=== PATIENT | female | born 1930 | race Two or more races ===

== ENCOUNTER 2017-05-30 11:40 | Outpatient (CLI) | payer MEDICARE, OTHER ==
[~2017-05-30 11:40] MED LIST: ACET-2605 PO; AMLO5TAB2 PO; ASCO10007 PO; CALC-903 PO; HYDR-552 PO; LACT1CAP73 PO; LEVO88TA5 PO; MECL-118 PO; OMEP20CA10 PO; PREG100C PO; VALS80TA30 PO
== END 2017-05-30 23:59 | disposition home health service (06) ==
LOC: WOU 11:40
PROVIDERS: ATTEND Podiatrist Foot & Ankle Surgery
DX: I70.235 Atherosclerosis of native arteries of right leg with ulceration of other part of foot (principal); L97.512 Non-pressure chronic ulcer of other part of right foot with fat layer exposed; I48.91 Unspecified atrial fibrillation; Z86.73 Personal history of transient ischemic attack (TIA), and cerebral infarction without residual deficits; Z96.611 Presence of right artificial shoulder joint; G90.09 Other idiopathic peripheral autonomic neuropathy; M79.671 Pain in right foot
CPT/HCPCS: 11042; A6253; A6402

== ENCOUNTER 2017-06-06 13:20 | Outpatient (CLI) | payer MEDICARE, OTHER | END 2017-06-06 23:59 | disposition home health service (06) | LOC: WOU 13:20 | PROVIDERS: ATTEND Podiatrist Foot & Ankle Surgery | DX: I70.235 Atherosclerosis of native arteries of right leg with ulceration of other part of foot (principal); L97.512 Non-pressure chronic ulcer of other part of right foot with fat layer exposed; M79.671 Pain in right foot; G90.09 Other idiopathic peripheral autonomic neuropathy; Z87.891 Personal history of nicotine dependence; Z79.01 Long term (current) use of anticoagulants; Z79.52 Long term (current) use of systemic steroids; Z79.899 Other long term (current) drug therapy; Z96.611 Presence of right artificial shoulder joint | CPT/HCPCS: 11042; A6402; J3490 ==

== ENCOUNTER 2017-06-13 13:22 | Outpatient (CLI) | payer MEDICARE, OTHER ==
[~2017-06-13 13:22] MED LIST changes: -AMLO5TAB2 PO; +AMLO5TAB7 PO; -VALS80TA30 PO; +VALS80TA31 PO
== END 2017-06-13 23:59 | disposition home health service (06) ==
LOC: WOU 13:22
PROVIDERS: ATTEND Podiatrist Foot & Ankle Surgery
DX: I70.235 Atherosclerosis of native arteries of right leg with ulceration of other part of foot (principal); L97.512 Non-pressure chronic ulcer of other part of right foot with fat layer exposed; Z87.891 Personal history of nicotine dependence; I69.398 Other sequelae of cerebral infarction; G62.9 Polyneuropathy, unspecified; I10 Essential (primary) hypertension; Z96.611 Presence of right artificial shoulder joint; Z79.899 Other long term (current) drug therapy; Z79.01 Long term (current) use of anticoagulants
CPT/HCPCS: 11042; A6402

== ENCOUNTER 2017-06-20 11:31 | Outpatient (CLI) | payer MEDICARE, OTHER | END 2017-06-20 23:59 | disposition home health service (06) | LOC: WOU 11:31 | PROVIDERS: ATTEND Podiatrist Foot & Ankle Surgery | PROC: 0JBQ0ZZ Excision of Right Foot Subcutaneous Tissue and Fascia, Open Approach (ICD-10-PCS; principal; 2017-06-20) | PROC: 0JB70ZZ Excision of Back Subcutaneous Tissue and Fascia, Open Approach (ICD-10-PCS; principal; 2017-06-20) | DX: L89.153 Pressure ulcer of sacral region, stage 3 (principal); I70.235 Atherosclerosis of native arteries of right leg with ulceration of other part of foot; L97.512 Non-pressure chronic ulcer of other part of right foot with fat layer exposed; G90.09 Other idiopathic peripheral autonomic neuropathy; I48.91 Unspecified atrial fibrillation; Z79.01 Long term (current) use of anticoagulants; Z86.73 Personal history of transient ischemic attack (TIA), and cerebral infarction without residual deficits; Z74.01 Bed confinement status; I10 Essential (primary) hypertension; E46 Unspecified protein-calorie malnutrition; Z68.23 Body mass index [BMI] 23.0-23.9, adult; Z87.891 Personal history of nicotine dependence | CPT/HCPCS: 11042; A6253; A6402 ==

== ENCOUNTER 2017-06-26 10:40 | Outpatient (CLI) | payer MEDICARE, OTHER | END 2017-06-26 23:59 | disposition home health service (06) | LOC: WOU 10:40 | PROVIDERS: ATTEND Podiatrist Foot & Ankle Surgery | DX: I70.235 Atherosclerosis of native arteries of right leg with ulceration of other part of foot (principal); L97.518 Non-pressure chronic ulcer of other part of right foot with other specified severity; M79.671 Pain in right foot; M62.50 Muscle wasting and atrophy, not elsewhere classified, unspecified site; N39.0 Urinary tract infection, site not specified; Z87.891 Personal history of nicotine dependence; I48.91 Unspecified atrial fibrillation; Z79.01 Long term (current) use of anticoagulants; G62.9 Polyneuropathy, unspecified; Z86.73 Personal history of transient ischemic attack (TIA), and cerebral infarction without residual deficits | CPT/HCPCS: 11042; A6253; A6402 ==

== ENCOUNTER 2017-06-27 12:40 | Outpatient (CLI) | payer MEDICARE, OTHER | END 2017-06-27 23:59 | disposition home health service (06) | LOC: WOU 12:40 | PROVIDERS: ATTEND Surgery | DX: L89.153 Pressure ulcer of sacral region, stage 3 (principal); E43 Unspecified severe protein-calorie malnutrition; I10 Essential (primary) hypertension; M62.50 Muscle wasting and atrophy, not elsewhere classified, unspecified site; G90.09 Other idiopathic peripheral autonomic neuropathy; I73.9 Peripheral vascular disease, unspecified; Z74.01 Bed confinement status; Z68.23 Body mass index [BMI] 23.0-23.9, adult; Z87.891 Personal history of nicotine dependence; Z86.73 Personal history of transient ischemic attack (TIA), and cerebral infarction without residual deficits | CPT/HCPCS: 11042; A6253; A6402 ==

== ENCOUNTER 2017-07-04 10:34 | Outpatient (CLI) | payer MEDICARE, OTHER | END 2017-07-04 23:59 | disposition home health service (06) | LOC: WOU 10:34 | PROVIDERS: ATTEND Surgery | DX: L89.153 Pressure ulcer of sacral region, stage 3 (principal); M79.671 Pain in right foot; G90.09 Other idiopathic peripheral autonomic neuropathy; M62.50 Muscle wasting and atrophy, not elsewhere classified, unspecified site; I70.209 Unspecified atherosclerosis of native arteries of extremities, unspecified extremity; I48.91 Unspecified atrial fibrillation; Z86.73 Personal history of transient ischemic attack (TIA), and cerebral infarction without residual deficits; Z74.01 Bed confinement status; I10 Essential (primary) hypertension; E46 Unspecified protein-calorie malnutrition; Z68.23 Body mass index [BMI] 23.0-23.9, adult | CPT/HCPCS: A6402; G0463 ==

== ENCOUNTER 2017-07-08 11:00 | Outpatient (CLI) | payer MEDICARE, OTHER ==
[~2017-07-08 11:00] MED LIST changes: +AMLO5TAB2 PO; -AMLO5TAB7 PO; +VALS80TA30 PO; -VALS80TA31 PO
== END 2017-07-08 23:59 | disposition home health service (06) ==
LOC: WOU 11:00
PROVIDERS: ATTEND Podiatrist Foot & Ankle Surgery
DX: I73.9 Peripheral vascular disease, unspecified (principal); G90.09 Other idiopathic peripheral autonomic neuropathy; L84 Corns and callosities; M19.90 Unspecified osteoarthritis, unspecified site; I10 Essential (primary) hypertension; I48.91 Unspecified atrial fibrillation; Z86.73 Personal history of transient ischemic attack (TIA), and cerebral infarction without residual deficits; Z87.891 Personal history of nicotine dependence; Z79.01 Long term (current) use of anticoagulants
CPT/HCPCS: G0463

== ENCOUNTER 2017-07-18 13:00 | Outpatient (CLI) | payer MEDICARE, OTHER ==
[~2017-07-18 13:00] MED LIST changes: -AMLO5TAB2 PO; +AMLO5TAB7 PO; -VALS80TA30 PO; +VALS80TA31 PO
== END 2017-07-18 23:59 | disposition home health service (06) ==
LOC: WOU 13:00
PROVIDERS: ATTEND Surgery
DX: L89.153 Pressure ulcer of sacral region, stage 3 (principal); G90.09 Other idiopathic peripheral autonomic neuropathy; I73.9 Peripheral vascular disease, unspecified; M26.50 Dentofacial functional abnormalities, unspecified; Z74.01 Bed confinement status; E46 Unspecified protein-calorie malnutrition; Z68.23 Body mass index [BMI] 23.0-23.9, adult; I10 Essential (primary) hypertension; I48.91 Unspecified atrial fibrillation; Z79.01 Long term (current) use of anticoagulants; Z86.73 Personal history of transient ischemic attack (TIA), and cerebral infarction without residual deficits; G62.9 Polyneuropathy, unspecified
CPT/HCPCS: A6402; G0463

== ENCOUNTER 2017-08-15 13:15 | Outpatient (CLI) | payer MEDICARE, OTHER | END 2017-08-15 23:59 | disposition home or self-care (01) | LOC: WOU 13:15 | PROVIDERS: ATTEND Surgery | DX: L84 Corns and callosities (principal); G90.09 Other idiopathic peripheral autonomic neuropathy; I73.9 Peripheral vascular disease, unspecified; I10 Essential (primary) hypertension; M62.50 Muscle wasting and atrophy, not elsewhere classified, unspecified site; Z86.73 Personal history of transient ischemic attack (TIA), and cerebral infarction without residual deficits | CPT/HCPCS: A6402; G0463 ==

== ENCOUNTER 2017-09-09 12:55 | Outpatient (CLI) | payer MEDICARE, OTHER | END 2017-09-09 23:59 | disposition home health service (06) | LOC: WOU 12:55 | PROVIDERS: ATTEND Podiatrist Foot & Ankle Surgery | DX: L84 Corns and callosities (principal); I73.9 Peripheral vascular disease, unspecified; G90.09 Other idiopathic peripheral autonomic neuropathy; M62.50 Muscle wasting and atrophy, not elsewhere classified, unspecified site; Z96.611 Presence of right artificial shoulder joint; Z86.73 Personal history of transient ischemic attack (TIA), and cerebral infarction without residual deficits | CPT/HCPCS: G0463; Z7610 ==

== ENCOUNTER 2017-10-14 13:04 | Outpatient (CLI) | payer MEDICARE, OTHER ==
[~2017-10-14 13:04] MED LIST changes: +AMLO5TAB2 PO; -AMLO5TAB7 PO
== END 2017-10-14 23:59 | disposition home or self-care (01) ==
LOC: WOU 13:04
PROVIDERS: ATTEND Podiatrist Foot & Ankle Surgery
DX: L84 Corns and callosities (principal); I73.9 Peripheral vascular disease, unspecified; G90.09 Other idiopathic peripheral autonomic neuropathy; M62.50 Muscle wasting and atrophy, not elsewhere classified, unspecified site
CPT/HCPCS: G0463; Z7610

== ENCOUNTER 2018-03-13 12:49 | Outpatient (CLI) | END 2018-03-13 23:59 | disposition home or self-care (01) | DX: S90.111A Contusion of right great toe without damage to nail, initial encounter (principal); W22.8XXA Striking against or struck by other objects, initial encounter; Y92.89 Other specified places as the place of occurrence of the external cause; G90.09 Other idiopathic peripheral autonomic neuropathy; M62.50 Muscle wasting and atrophy, not elsewhere classified, unspecified site; L84 Corns and callosities; I73.9 Peripheral vascular disease, unspecified; Z86.73 Personal history of transient ischemic attack (TIA), and cerebral infarction without residual deficits; I10 Essential (primary) hypertension; I48.91 Unspecified atrial fibrillation; Z79.01 Long term (current) use of anticoagulants; Z79.899 Other long term (current) drug therapy ==

== ENCOUNTER 2018-03-27 12:09 | Outpatient (CLI) | payer MEDICARE, OTHER ==
[~2018-03-27 12:09] MED LIST changes: -AMLO5TAB2 PO; +AMLO5TAB9 PO; +HYDR-4384 PO; -HYDR-552 PO
== END 2018-03-27 23:59 | disposition home or self-care (01) ==
LOC: WOU 12:09
PROVIDERS: ATTEND Podiatrist Foot & Ankle Surgery
DX: S90.111D Contusion of right great toe without damage to nail, subsequent encounter (principal); W22.8XXD Striking against or struck by other objects, subsequent encounter; G90.09 Other idiopathic peripheral autonomic neuropathy; I73.9 Peripheral vascular disease, unspecified; M62.50 Muscle wasting and atrophy, not elsewhere classified, unspecified site; L84 Corns and callosities; Z86.73 Personal history of transient ischemic attack (TIA), and cerebral infarction without residual deficits; Z87.891 Personal history of nicotine dependence; Z96.611 Presence of right artificial shoulder joint; I10 Essential (primary) hypertension; I48.91 Unspecified atrial fibrillation; Z79.01 Long term (current) use of anticoagulants; Z79.899 Other long term (current) drug therapy
CPT/HCPCS: G0463; Z7610 ×2

== ENCOUNTER 2018-07-15 13:35 | Inpatient (IN) | payer MEDICARE, OTHER ==
[~2018-07-15] VITALS: Ht 172.7 cm; Wt 71.2 kg
--- NOTE | 2018-07-15 13:42 | NUR ---
BIB [facility], WEAKNESS AND DIARRHEA X 5 DAYS. PT IS AOX3, VSS, RR EVEN AND UNLABORED ON RA. SKIN WARM TO TOUCH, DRY, INTACT. NO ACUTE DISTRESS NOTED. DAUGHTER AT BEDSIDE. READY FOR EVAL.
[2018-07-15] MEDS ORDERED: IV NS 0.9% 1,000 ML BAG IV ONE (14:00)
[2018-07-15 14:15] LABS: BASOPHILS % (AUTO) 0.4 % (0.0-2.0); EOSINOPHILS % (AUTO) 0.3 % (0.0-6.0); HEMATOCRIT 33 % (33-45); HEMOGLOBIN 10.9 g/dL (11.5-14.8); LYMPHOCYTES # (AUTO) 0.5 /CMM (0.8-4.8); LYMPHOCYTES % (AUTO) 4.4 % (20.0-44.0); MEAN CORPUSCULAR HGB CONC 33 g/dl (31.0-36.0); MEAN CORPUSCULAR VOLUME 98 fL (82-100); MONOCYTES # (AUTO) 0.8 /CMM (0.1-1.30); MONOCYTES % (AUTO) 7.5 % (2.0-12.0); NEUTROPHILS # (AUTO) 9.5 /CMM (1.8-8.9); NEUTROPHILS % (AUTO) 87.4 % (43.0-81.0); PLATELET COUNT (AUTO) 184 /CMM (150-450); RED BLOOD CELL COUNT(AUTO) 3.35 MIL/uL (4.0-5.2); WHITE BLOOD COUNT (AUTO) 10.9 K/uL (4.3-11.0)
[2018-07-15 14:23] LABS: CALCIUM, SERUM 9.6 mg/dL (8.5-10.1); CARBON DIOXIDE 26 mmol/L (21-32); CHLORIDE 106 mmol/L (98-107); CREATININE 0.9 mg/dL (0.6-1.3); GLUCOSE 155 mg/dL (74-106); POTASSIUM 4.3 mmol/L (3.5-5.1); SODIUM SERUM 141 mmol/L (136-145); UREA NITROGEN, BLOOD 22 mg/dL (7-18)
[2018-07-15 14:35] LABS: ALANINE AMINOTRANSFERASE 26 U/L (12-78); ALBUMIN 3.1 g/dL (3.4-5.0); ALKALINE PHOSPHATASE 112 U/L (46-116); ASPARTATE AMINOTRANSFERASE 18 U/L (15-37); BILIRUBIN,DIRECT 0.2 mg/dL (0.0-0.2); BILIRUBIN,TOTAL 0.6 mg/dL (0.2-1.0); LIPASE 121 U/L (73-393); TOTAL PROTEIN, SERUM 6.8 g/dL (6.4-8.2)
--- NOTE | 2018-07-15 15:05 | NUR ---
STOOL SAMPLE SENT TO STAT LAB
--- NOTE | 2018-07-15 16:14 | NUR ---
PT ASLEEP IN BED. NO COMPLAINTS AT THIS TIME. VSS. WILL CONT TO MONITOR.
[2018-07-15 16:48] LABS: OCCULT BLOOD STOOL NEGATIVE (NEGATIVE)
--- NOTE | 2018-07-15 17:27 | NUR ---
Santana valencia in [facility] - 07/15/18 at 2158 by [facility] ICU 205
--- NOTE | 2018-07-15 17:55 | NUR ---
MS 205
--- NOTE | 2018-07-15 17:56 | NUR ---
REPORT GIVEN TO DANE MICHELLE FOR 205 MS
--- NOTE | 2018-07-15 18:25 | NUR ---
[facility]
--- NOTE | 2018-07-15 18:30 | NUR ---
ADMISSION/CLOSING NOTE PT WAS BROUGHT UP VIA GURNEY AT THIS TIME, AWAKE AND ALERT X3, BREATHING EVEN AND UNLABORED ON RA, NO S/S OF ANY DISTRESS OR PAIN AT THIS TIME, NOTED TO HAVE RIGHT WRIST GAUGE 20, SAFETY PRECAUTIONS IN PLACE, CALL LIGHT WITHIN REACH, WILL MONITOR PT ACCORDINGLY AND ENDORSE TO RELOCATION COMMISSIONER RN FOR CROW.
[2018-07-15] MEDS ORDERED: MAGNESIUM HYDROXIDE 30 ML UDC PO PRN (19:00)
[2018-07-15] MEDS ORDERED: Z GUARD REMEDY 2 OZ OINT TP PRN (19:00)
[2018-07-15] MEDS ORDERED: ONDANSETRON HCL/PF 4 MG/2 ML VIAL IVP PRN (19:00)
[2018-07-15] MEDS ORDERED: ACETAMINOPHEN 325 MG TABLET PO PRN (19:00)
--- NOTE | 2018-07-15 19:20 | NUR ---
CHANGE OF SHIFT REPORT Patient in bed, awake. A/O x 4 stable oxygen saturation on RA, denies pain. New admit arrived previous shift. Orientation to room, unit, staff. Call light within reach, safety measure explained, verbalized understanding.
--- NOTE | 2018-07-15 20:00 | NUR ---
SKIN CHECK Provided privacy, skin check done with DANEIL Comer. Skin intact. Coccyx blanchable redness, right foot first toe skin redness with streak of blood purplish color. Wound consult ordered.
[2018-07-15] MEDS ORDERED: ENOXAPARIN SODIUM 40 MG/0.4 ML DISP.SYRIN SQ SCH (21:00)
--- NOTE | 2018-07-15 21:36 | NUR ---
DIET Notified concrete stone fabricating supervisor, order place-Diet Clear liquids advance as tolerated.
[2018-07-15 22:00] VITALS: BP 123/67
[2018-07-15] MEDS: ATORVASTATIN 10 MG TABLET PO SCH (22:19)
[2018-07-15] MEDS ORDERED: DIPH25TA25 PO (22:45)
[2018-07-15] MEDS ORDERED: METH1TAB30 PO (22:45)
[2018-07-15] MEDS ORDERED: TRAZ-182 PO (22:45)
[2018-07-15] MEDS ORDERED: DOCU100C36 PO (22:45)
[2018-07-15] MEDS ORDERED: ESZO3TAB27 PO (22:45)
[2018-07-15] MEDS ORDERED: NITR100C11 PO (22:45)
[2018-07-15] MEDS ORDERED: PRED20TA PO (22:45)
[2018-07-15] MEDS ORDERED: DOXA2TAB2 PO (22:45)
[2018-07-15] MEDS ORDERED: HYDR-4076 PO (22:45)
[2018-07-15] MEDS ORDERED: PREG100C PO (22:45)
[2018-07-15] MEDS ORDERED: CRAN400T3 PO (22:45)
[2018-07-15] MEDS ORDERED: POLY17PO29 PO (22:45)
[2018-07-15] MEDS ORDERED: DILT240C88 PO (22:45)
[2018-07-15] MEDS ORDERED: APIX2.5T PO (22:45)
[2018-07-15] MEDS ORDERED: IPRA3AMP22 IH (22:45)
[2018-07-15] MEDS ORDERED: LANS30CA56 PO (22:45)
[2018-07-15] MEDS ORDERED: TRAM50TA2 PO (22:45)
[2018-07-15] MEDS ORDERED: PRED5TAB48 PO (22:45)
--- NOTE | 2018-07-15 22:45 | NUR ---
MED RECON. Patient seen by Ashely Banks NP. Med recon for review.
--- NOTE | 2018-07-15 22:52 | NUR ---
CHINO CATHETER Per patient she does self catheterization at home every 6 hours due to unable to void. Bladder scan showed 390 vol urine. Informed Ashely Banks NP. Order placed, Insert [facility] Inpatient.
[2018-07-15] MEDS: ZOLPIDEM TARTRATE 5 MG TABLET PO PRN (23:42)
[2018-07-16] MEDS ORDERED: TRAMADOL HCL 50 MG TABLET PO PRN (01:30)
[2018-07-16] MEDS: IV NS 0.9% 1,000 ML IV PRN ×2 (01:57→16:13)
[2018-07-16] MEDS ORDERED: AZITHROMYCIN 500 MG VIAL ONE (02:17)
[2018-07-16] MEDS: AZITHROMYCIN 500 MG in IV D5W 250 ML IV SCH (02:29)
--- NOTE | 2018-07-16 06:27 | NUR ---
END OF SHIFT REPORT Patient in bed, stable oxygen saturation on RA. No BM this shift, no diarrhea. Stool cdiff pending result. IVF infusing, maintained at 75 ml/hr. On IV antibiotic as scheduled, VSS. Slept well with PRN Ambien. For wound consult, PT/OT. Chino cath in place, bag off the floor. Maintained safety.
[2018-07-16] MEDS: LEVOTHYROXINE SODIUM 88 MCG TABLET PO SCH (06:37)
[2018-07-16 07:04] LABS: APPEARANCE,URINE SL CLOUDY (CLEAR); BILIRUBIN,URINE NEGATIVE (NEGATIVE); BLOOD, URINE NEGATIVE Ery/uL (NEGATIVE); COLOR,URINE YELLOW (YELLOW); KETONES,URINE NEGATIVE (NEGATIVE); LEUKOCYTE ESTERASE ,URINE TRACE (NEGATIVE); NITRITE, URINE NEGATIVE (NEGATIVE); PROTEIN,URINE TRACE mg/dl (NEGATIVE); UGLUCOSE NEGATIVE (NEGATIVE); UROBILINOGEN,URINE 0.2 EU/dL (0.2)
[2018-07-16 07:26] LABS: BASOPHILS % (AUTO) 0.3 % (0.0-2.0); EOSINOPHILS % (AUTO) 1.8 % (0.0-6.0); HEMATOCRIT 29 % (33-45); HEMOGLOBIN 9.8 g/dL (11.5-14.8); LYMPHOCYTES # (AUTO) 1.2 /CMM (0.8-4.8); LYMPHOCYTES % (AUTO) 15.1 % (20.0-44.0); MEAN CORPUSCULAR HGB CONC 34 g/dl (31.0-36.0); MEAN CORPUSCULAR VOLUME 97 fL (82-100); MONOCYTES # (AUTO) 0.7 /CMM (0.1-1.30); MONOCYTES % (AUTO) 8.8 % (2.0-12.0); NEUTROPHILS # (AUTO) 5.6 /CMM (1.8-8.9); PLATELET COUNT (AUTO) 185 /CMM (150-450); RED BLOOD CELL COUNT(AUTO) 2.99 MIL/uL (4.0-5.2); WHITE BLOOD COUNT (AUTO) 7.6 K/uL (4.3-11.0)
[2018-07-16] MEDS ORDERED: OMEPRAZOLE 20 MG CAPSULE.DR PO SCH (07:30)
[2018-07-16 07:43] LABS: BACTERIA,URINE 4+ /HPF (None Seen)
[2018-07-16 07:51] LABS: CALCIUM, SERUM 9.1 mg/dL (8.5-10.1); CARBON DIOXIDE 24 mmol/L (21-32); CHLORIDE 106 mmol/L (98-107); CREATININE 0.8 mg/dL (0.6-1.3); GLUCOSE 77 mg/dL (74-106); MAGNESIUM 1.6 mg/dL (1.8-2.4); PHOSPHORUS 2.8 mg/dL (2.5-4.9); POTASSIUM 3.7 mmol/L (3.5-5.1); SODIUM SERUM 140 mmol/L (136-145); UREA NITROGEN, BLOOD 22 mg/dL (7-18)
[2018-07-16 08:00] VITALS: BP 126/58
[2018-07-16 08:08] LABS: CHOLESTEROL 83 mg/dL (<200); HDL CHOLESTEROL 18 mg/dL (40-60); LDL 60 mg/dL (0-99); TRIGLYCERIDES 77 mg/dL (30-150)
[2018-07-16] MEDS: POLYETHYLENE GLYCOL 3350 17 GM POWD.PACK PO SCH (09:00)
[2018-07-16] MEDS ORDERED: MAGNESIUM OXIDE 400 MG TABLET PO ONE (09:00)
[2018-07-16] MEDS: DOCUSATE SODIUM 100 MG CAPSULE PO SCH (09:00)
--- NOTE | 2018-07-16 09:00 | NUR ---
MS/RN Diarrhea One episode of diarrhea, stool already collected and sent to lab.
[2018-07-16] MEDS: DILTIAZEM HCL CD 240 MG PO SCH (09:26)
[2018-07-16] MEDS: CALCIUM CARBONATE 500 MG TAB.CHEW PO SCH (09:26)
[2018-07-16] MEDS: LACTOBACILLUS RHAMNOSUS GG 1 EACH CAP.SPRINK PO SCH ×2 (09:26→17:25)
[2018-07-16] MEDS: NITROFURANTOIN/NITROFURAN MAC 100 MG CAPSULE PO SCH (09:26)
[2018-07-16] MEDS: predniSONE 20 MG TABLET PO SCH (09:26)
[2018-07-16] MEDS: ASCORBIC ACID 500 MG TABLET PO SCH (09:26)
[2018-07-16] MEDS: VALSARTAN 80 MG TABLET PO SCH (09:27)
[2018-07-16] MEDS: ASPIRIN 81 MG TAB.CHEW PO SCH (09:27)
[2018-07-16] MEDS: hydrALAZINE HCL 25 MG TABLET PO SCH ×2 (09:27→17:26)
[2018-07-16] MEDS: PREGABALIN 100 MG CAPSULE PO SCH ×2 (09:27→17:26)
[2018-07-16] MEDS: HYDROCODONE/APAP 5/325MG 1 EACH TABLET PO PRN (09:31)
--- NOTE | 2018-07-16 09:55 | NUR ---
MS/RN Medications Morning medications administered as ordered.
--- NOTE | 2018-07-16 10:30 | NUR ---
MS/RN S/B Ashely Banks FAMILY AND CONSUMER SCIENCES TEACHER Seen by FAMILY AND CONSUMER SCIENCES TEACHER - order wrote to start oral vancomycin every 6 hours.
[2018-07-16] MEDS: VANCOMYCIN HCL 125 MG/2.5 ML ORAL.SUSP PO SCH ×2 (12:11→17:31)
--- NOTE | 2018-07-16 15:00 | NUR ---
MS/RN S/B Dr Myles Seen by Dr Myles - 2D echo ordered, ejection fracture 55%
[2018-07-16 16:00] VITALS: BP 116/68
[2018-07-16] MEDS: APIXABAN 2.5 MG TABLET PO SCH (17:26)
[2018-07-16] MEDS: TRAZODONE 50 MG TABLET PO SCH (17:27)
--- NOTE | 2018-07-16 18:34 | NUR ---
MS/RN End note Patient has had a total of 3 episodes of diarrhea today, sample sent to lab for c-diff. Skin kept clean and dry at all times, heels off loaded. Will endorse to night warehouse selector.
--- NOTE | 2018-07-16 19:54 | NUR ---
RECEIVED PT IN BED AWAKE AND RESPONSIVE. BREATHING EVENLY. NO SOB. NAD . NO C/O PAIN OR DISCOMFORT AT THIS TIME. ON ISOLATION PRECAUTION FOR POSSIBLE C.DIFF. WITH PENDING RESULTS. NEEDS ATTENDED. BED LOW LOCKED. SRX2. CALL LIGHT WITHIN REACH, WILL CONT TO MONITOR
[2018-07-16 20:00] VITALS: BP 122/65
[2018-07-16] MEDS: DOXAZOSIN MESYLATE (1 MG) 1 MG TABLET PO SCH (21:34)
[2018-07-16] MEDS: ZOLPIDEM TARTRATE 5 MG TABLET PO PRN (21:34)
[2018-07-16] MEDS: ATORVASTATIN 10 MG TABLET PO SCH (21:34)
--- NOTE | 2018-07-16 21:35 | NUR ---
Khadijahien given as ordered per pt's request for insomnia. will cont to monitor,
[2018-07-17] MEDS: VANCOMYCIN HCL 125 MG/2.5 ML ORAL.SUSP PO SCH ×4 (00:01→17:00)
[2018-07-17] MEDS: AZITHROMYCIN 500 MG in IV D5W 250 ML IV SCH (02:25)
[2018-07-17] MEDS: IV NS 0.9% 1,000 ML IV PRN ×2 (06:25→21:45)
[2018-07-17 06:26] LABS: BASOPHILS % (AUTO) 0.3 % (0.0-2.0); EOSINOPHILS % (AUTO) 0.3 % (0.0-6.0); HEMATOCRIT 30 % (33-45); HEMOGLOBIN 10.5 g/dL (11.5-14.8); LYMPHOCYTES # (AUTO) 0.7 /CMM (0.8-4.8); LYMPHOCYTES % (AUTO) 7.8 % (20.0-44.0); MEAN CORPUSCULAR HGB CONC 34 g/dl (31.0-36.0); MEAN CORPUSCULAR VOLUME 97 fL (82-100); MONOCYTES # (AUTO) 0.7 /CMM (0.1-1.30); NEUTROPHILS # (AUTO) 7.6 /CMM (1.8-8.9); NEUTROPHILS % (AUTO) 83.6 % (43.0-81.0); PLATELET COUNT (AUTO) 224 /CMM (150-450); RED BLOOD CELL COUNT(AUTO) 3.15 MIL/uL (4.0-5.2)
--- NOTE | 2018-07-17 06:27 | NUR ---
WOUND CARE CONSULT WOUND CARE RECEIVED CONSULT FOR RIGHT FIRST TOE NON BLANCHABLE REDNESS AND COCCYX BLANCHABLE REDNESS. WOUND CARE WILL DEFER CONSULT AND ALL TREATMENT PLANS TO PLASTIC SURGICAL TEAM WHO ARE CURRENTLY FOLLOWING THIS PATIENT. DPM DR NEVAREZ IS ALSO FOLLOWING THIS PATIENT. PATIENT WITH NELL AT 17, ALL PRESSURE ULCER PREVENTION MEASURES ARE NOTED TO BE IN PLACE. WILL SEE PRN.
[2018-07-17 06:31] LABS: CALCIUM, SERUM 9.2 mg/dL (8.5-10.1); CARBON DIOXIDE 23 mmol/L (21-32); CHLORIDE 108 mmol/L (98-107); CREATININE 0.9 mg/dL (0.6-1.3); GLUCOSE 141 mg/dL (74-106); MAGNESIUM 1.5 mg/dL (1.8-2.4); PHOSPHORUS 2.4 mg/dL (2.5-4.9); POTASSIUM 3.8 mmol/L (3.5-5.1); SODIUM SERUM 142 mmol/L (136-145); UREA NITROGEN, BLOOD 21 mg/dL (7-18)
--- NOTE | 2018-07-17 07:05 | NUR ---
PT IN BED AWAKE AND ALERT. BREATHING EVENLY. WITH FREQUENT WATERY DIARRHEA. CLEANED AND DRIED. ON ONGOING IVF HYDRATION MISHA WELL. NEEDS ATTENDED . BED LOW LOCKED. SRX2. CALL LIGHT WITHIN REACH, WILL CONT TO MONITOR AND WILL ENDORSE TO AM SHIFT FOR CROW.
[2018-07-17 08:00] VITALS: BP 129/66
--- NOTE | 2018-07-17 08:00 | NUR ---
MS 2 RN AM NOTES PT IN BED AWAKE AND ALERT. BREATHING EVENLY. WITH FREQUENT WATERY DIARRHEA. GOOD PERICARE RENDERED.CLEANED AND DRIED. ON ONGOING IVF HYDRATION INFUSING WELL. BED LOW LOCKED. SRX2. CALL LIGHT WITHIN REACH, WILL CONT TO MONITOR
[2018-07-17] MEDS: DOCUSATE SODIUM 100 MG CAPSULE PO SCH ×2 (09:00→09:17)
[2018-07-17] MEDS: POLYETHYLENE GLYCOL 3350 17 GM POWD.PACK PO SCH (09:00)
[2018-07-17] MEDS: VALSARTAN 80 MG TABLET PO SCH (09:15)
[2018-07-17] MEDS: LEVOTHYROXINE SODIUM 88 MCG TABLET PO SCH (09:16)
[2018-07-17] MEDS: ASPIRIN 81 MG TAB.CHEW PO SCH (09:16)
[2018-07-17] MEDS: CALCIUM CARBONATE 500 MG TAB.CHEW PO SCH (09:16)
[2018-07-17] MEDS: ASCORBIC ACID 500 MG TABLET PO SCH (09:17)
[2018-07-17] MEDS: hydrALAZINE HCL 25 MG TABLET PO SCH ×2 (09:17→16:56)
[2018-07-17] MEDS: DILTIAZEM HCL CD 240 MG PO SCH (09:17)
[2018-07-17] MEDS: PANTOPRAZOLE 40 MG TABLET.DR PO SCH (09:17)
[2018-07-17] MEDS: PREGABALIN 100 MG CAPSULE PO SCH ×2 (09:17→16:57)
[2018-07-17] MEDS: LACTOBACILLUS RHAMNOSUS GG 1 EACH CAP.SPRINK PO SCH ×2 (09:17→16:57)
[2018-07-17] MEDS: predniSONE 20 MG TABLET PO SCH (09:17)
[2018-07-17] MEDS: NITROFURANTOIN/NITROFURAN MAC 100 MG CAPSULE PO SCH (09:17)
[2018-07-17] MEDS: APIXABAN 2.5 MG TABLET PO SCH ×2 (09:21→16:57)
[2018-07-17] MEDS: Magnesium 1GM/D5W 100ML PREMIX 100 ML IV SCH ×2 (11:01→11:52)
[2018-07-17] MEDS ORDERED: K PHOS NEUTRAL 250 MG TABLET PO ONE (11:30)
[2018-07-17] MEDS: LEVOFLOXACIN 500 MG /D5W 100ML 500 MG in PREMIX 1 EA IV SCH (14:38)
[2018-07-17 16:00] VITALS: BP 104/50
--- NOTE | 2018-07-17 16:15 | NUR ---
INGRID OF MICROBIOLOGY REPORTED THAT SHAWANDA STATED THAT THE STOOL COLLECTED FOR C DIFF IS INVALID AFTER BEING RUNNED TWICE DUE TO THE MEDS PT IS TAKING,WITH NO RESULTS.SHAWANDA RECOMMENDED TO COLLECT STOOL FOR C.DIFF IN 2 DAYS.
[2018-07-17] MEDS: TRAZODONE 50 MG TABLET PO SCH (17:00)
--- NOTE | 2018-07-17 18:12 | NUR ---
PT RESTING IN BED AND ATE HER EGG SANDWICH.DENIES ANY PAIN OR DISTRESS.PT WATCHING TV AND HAD 3 EPISODES OF LOOSE BM DURING THE SHIFT.ENCOURAGED FLUIDS. CALL LIGHT PLACED WITHIN REACH.
[2018-07-17 20:00] VITALS: BP 132/59
--- NOTE | 2018-07-17 20:00 | NUR ---
RN NOTES RECEIVED PATIENT AWAKE AND ALERT. BREATHING EVEN AND UN LABORED. NOTED WITH LOOSE - SOFT STOOL. GOOD PERICARE RENDERED.CLEANED AND DRIED. WILL MONITOR FOR LOOSE WATERY STOOL, ON ONGOING IVF HYDRATION INFUSING WELL. SAFETY MEASURES IN PLACE,BED LOW LOCKED. BEDSIDE RAILS UP X2. CALL LIGHT WITHIN REACH, WILL MONITOR ACCORDINGLY.
[2018-07-17] MEDS: ATORVASTATIN 10 MG TABLET PO SCH (21:18)
[2018-07-17] MEDS: DOXAZOSIN MESYLATE (1 MG) 1 MG TABLET PO SCH (21:19)
[2018-07-18] MEDS: VANCOMYCIN HCL 125 MG/2.5 ML ORAL.SUSP PO SCH ×4 (00:05→17:24)
--- NOTE | 2018-07-18 03:05 | NUR ---
RN NOTES PATIENT C/O GENERALIZED PAIN, TYLENOL 650MG TABLET PO GIVEN ORDERED. WILL MONITOR.
[2018-07-18 06:30] LABS: BASOPHILS % (AUTO) 0.1 % (0.0-2.0); EOSINOPHILS % (AUTO) 0.2 % (0.0-6.0); HEMATOCRIT 29 % (33-45); HEMOGLOBIN 9.7 g/dL (11.5-14.8); LYMPHOCYTES # (AUTO) 0.7 /CMM (0.8-4.8); LYMPHOCYTES % (AUTO) 7.2 % (20.0-44.0); MEAN CORPUSCULAR HGB CONC 34 g/dl (31.0-36.0); MEAN CORPUSCULAR VOLUME 96 fL (82-100); MONOCYTES # (AUTO) 0.6 /CMM (0.1-1.30); MONOCYTES % (AUTO) 5.9 % (2.0-12.0); NEUTROPHILS # (AUTO) 8.5 /CMM (1.8-8.9); NEUTROPHILS % (AUTO) 86.6 % (43.0-81.0); PLATELET COUNT (AUTO) 224 /CMM (150-450); RED BLOOD CELL COUNT(AUTO) 2.97 MIL/uL (4.0-5.2); WHITE BLOOD COUNT (AUTO) 9.8 K/uL (4.3-11.0)
[2018-07-18 07:04] LABS: CARBON DIOXIDE 22 mmol/L (21-32); CHLORIDE 111 mmol/L (98-107); CREATININE 0.7 mg/dL (0.6-1.3); GLUCOSE 98 mg/dL (74-106); MAGNESIUM 1.7 mg/dL (1.8-2.4); PHOSPHORUS 2.7 mg/dL (2.5-4.9); POTASSIUM 3.5 mmol/L (3.5-5.1); SODIUM SERUM 143 mmol/L (136-145); UREA NITROGEN, BLOOD 17 mg/dL (7-18)
--- NOTE | 2018-07-18 07:26 | NUR ---
RN NOTES ALL NEEDS ATTENDED AND MET, KEPT CLEAN DRY AND COMFORTABLE, BM X 4, SOFT, AND PASTY, FOR THE ENTIRE SHIFT,SAFETY MEASURES MAINTAINED, ASPIRATION PRECAUTION OBSERVED AT ALL TIMES. ENDORSED TO AM NURSE FOR CONTINUITY OF CARE.
[2018-07-18 08:00] VITALS: BP 125/77
--- NOTE | 2018-07-18 08:00 | NUR ---
MS 2 RN AM NOTES PT IN BED AWAKE AND ALERT. BREATHING EVENLY.DENIES PAIN OR DISTRESS.GOOD PERICARE RENDERED.ON ONGOING IVF HYDRATION INFUSING WELL. BED LOW LOCKED. SRX2. CALL LIGHT WITHIN REACH, ON CONTACT ISOLATION PRECAUTIONS.WILL CONT TO MONITOR
[2018-07-18] MEDS: POLYETHYLENE GLYCOL 3350 17 GM POWD.PACK PO SCH (09:00)
[2018-07-18] MEDS: DOCUSATE SODIUM 100 MG CAPSULE PO SCH (09:00)
[2018-07-18] MEDS: LACTOBACILLUS RHAMNOSUS GG 1 EACH CAP.SPRINK PO SCH ×2 (09:19→17:24)
[2018-07-18] MEDS: ASPIRIN 81 MG TAB.CHEW PO SCH (09:19)
[2018-07-18] MEDS: DILTIAZEM HCL CD 240 MG PO SCH (09:19)
[2018-07-18] MEDS: hydrALAZINE HCL 25 MG TABLET PO SCH ×2 (09:19→17:00)
[2018-07-18] MEDS: ASCORBIC ACID 500 MG TABLET PO SCH (09:19)
[2018-07-18] MEDS: predniSONE 20 MG TABLET PO SCH (09:19)
[2018-07-18] MEDS: PREGABALIN 100 MG CAPSULE PO SCH ×2 (09:19→17:24)
[2018-07-18] MEDS: CALCIUM CARBONATE 500 MG TAB.CHEW PO SCH (09:19)
[2018-07-18] MEDS: VALSARTAN 80 MG TABLET PO SCH (09:19)
[2018-07-18] MEDS: NITROFURANTOIN/NITROFURAN MAC 100 MG CAPSULE PO SCH (09:20)
[2018-07-18] MEDS: APIXABAN 2.5 MG TABLET PO SCH ×2 (09:21→17:24)
[2018-07-18] MEDS: PANTOPRAZOLE 40 MG TABLET.DR PO SCH (09:26)
[2018-07-18] MEDS: LEVOTHYROXINE SODIUM 88 MCG TABLET PO SCH (09:26)
[2018-07-18] MEDS: Magnesium 1GM/D5W 100ML PREMIX 100 ML IV SCH ×2 (10:59→12:43)
[2018-07-18] MEDS: LEVOFLOXACIN 500 MG /D5W 100ML 500 MG in PREMIX 1 EA IV SCH (14:05)
[2018-07-18] MEDS: IV NS 0.9% 1,000 ML IV PRN (17:23)
[2018-07-18] MEDS: TRAZODONE 50 MG TABLET PO SCH (17:24)
--- NOTE | 2018-07-18 18:30 | NUR ---
PT RESTING IN BED WATCHING TV DENYING ANY PAIN OR DISTRESS.WITH IVF INFUSING WELL.CALL LIGHT PLACED WITHIN REACH.
--- NOTE | 2018-07-18 19:30 | NUR ---
RN OPENING NOTES: RECEIVED PATIENT RESTING COMFORTABLY IN BED, WATCHING TV, ALERT AND ORIENTED X4. NO COMPLAIN OF PAIN. ON ISOLATION PRECAUTION TO R/O C-DIFF. CALL LIGHT WITHIN REACH.
[2018-07-18 20:24] VITALS: BP 125/59
[2018-07-18] MEDS: ATORVASTATIN 10 MG TABLET PO SCH (21:37)
[2018-07-18] MEDS: DOXAZOSIN MESYLATE (1 MG) 1 MG TABLET PO SCH (21:38)
[2018-07-18] MEDS: ZOLPIDEM TARTRATE 5 MG TABLET PO PRN (21:53)
--- NOTE | 2018-07-19 00:01 | NUR ---
RN NOTES: PATIENT IS ASLEEP AT THIS TIME.
--- NOTE | 2018-07-19 01:28 | NUR ---
RN NOTES: PATIENT GIVEN AMBIEN 5MG PO @2153, AND PATIENT WANTS NOT TO BE BOTHERED TONIGHT FOR ANY MEDS. VANCO DUE AT 0000 WAS NOT GIVEN, PATIENT WAS ASLEEP. CHECKED THE PATIENT AT THIS TIME, STILL ASLEEP.
[2018-07-19] MEDS: HYDROCODONE/APAP 5/325MG 1 EACH TABLET PO PRN ×2 (03:33→08:15)
[2018-07-19] MEDS: VANCOMYCIN HCL 125 MG/2.5 ML ORAL.SUSP PO SCH ×4 (06:03→17:44)
[2018-07-19] MEDS: IV NS 0.9% 1,000 ML IV PRN (06:03)
--- NOTE | 2018-07-19 07:09 | NUR ---
MS RN CLOSING NOTES: PATIENT IS RESTING COMFORTABLY IN BED. AWAKE, ALERT AND ORIENTED X4. NO SOB. NO COMPLAIN OF PAIN. CALL LIGHT WITHIN REACH. HAD BM X1 ONLY, SOFT. NO ACUTE EVENTS OVERNIGHT. SLEPT GOOD LAST NIGHT.
[2018-07-19 07:55] LABS: CALCIUM, SERUM 8.8 mg/dL (8.5-10.1); CARBON DIOXIDE 21 mmol/L (21-32); CHLORIDE 115 mmol/L (98-107); CREATININE 0.7 mg/dL (0.6-1.3); GLUCOSE 102 mg/dL (74-106); MAGNESIUM 1.8 mg/dL (1.8-2.4); POTASSIUM 3.9 mmol/L (3.5-5.1); SODIUM SERUM 146 mmol/L (136-145); UREA NITROGEN, BLOOD 16 mg/dL (7-18)
[2018-07-19 08:00] VITALS: BP 132/70
--- NOTE | 2018-07-19 08:00 | NUR ---
MS 2 RN AM NOTES PT IN BED AWAKE AND ALERT. BREATHING EVENLY.DENIES PAIN OR DISTRESS.GOOD PERICARE RENDERED.ON ONGOING IVF HYDRATION INFUSING WELL. BED LOW LOCKED. SRX2. CALL LIGHT WITHIN REACH, ON CONTACT ISOLATION PRECAUTIONS TO R/O C DIFF.WILL CONT TO MONITOR
[2018-07-19] MEDS: ASCORBIC ACID 500 MG TABLET PO SCH (08:13)
[2018-07-19] MEDS: ASPIRIN 81 MG TAB.CHEW PO SCH (08:13)
[2018-07-19] MEDS: LACTOBACILLUS RHAMNOSUS GG 1 EACH CAP.SPRINK PO SCH ×2 (08:14→17:44)
[2018-07-19] MEDS: LEVOTHYROXINE SODIUM 88 MCG TABLET PO SCH (08:14)
[2018-07-19] MEDS: VALSARTAN 80 MG TABLET PO SCH (08:14)
[2018-07-19] MEDS: CALCIUM CARBONATE 500 MG TAB.CHEW PO SCH (08:14)
[2018-07-19] MEDS: NITROFURANTOIN/NITROFURAN MAC 100 MG CAPSULE PO SCH (08:14)
[2018-07-19] MEDS: hydrALAZINE HCL 25 MG TABLET PO SCH ×2 (08:14→17:44)
[2018-07-19] MEDS: predniSONE 20 MG TABLET PO SCH (08:14)
[2018-07-19] MEDS: DILTIAZEM HCL CD 240 MG PO SCH (08:15)
[2018-07-19] MEDS: PREGABALIN 100 MG CAPSULE PO SCH ×2 (08:15→17:44)
[2018-07-19] MEDS: PANTOPRAZOLE 40 MG TABLET.DR PO SCH (08:15)
[2018-07-19] MEDS: DOCUSATE SODIUM 100 MG CAPSULE PO SCH (08:16)
[2018-07-19] MEDS: POLYETHYLENE GLYCOL 3350 17 GM POWD.PACK PO SCH (08:16)
[2018-07-19] MEDS: APIXABAN 2.5 MG TABLET PO SCH ×2 (08:18→17:46)
[2018-07-19] MEDS ORDERED: VANC125C11 PO (09:23)
[2018-07-19] MEDS ORDERED: MERO500V3 IV (09:23)
[2018-07-19] MEDS: LEVOFLOXACIN 500 MG /D5W 100ML 500 MG in PREMIX 1 EA IV SCH (12:30)
[2018-07-19 16:00] VITALS: BP 119/62
[2018-07-19 17:44] VITALS: BP 119/62
[2018-07-19] MEDS: TRAZODONE 50 MG TABLET PO SCH (17:44)
--- NOTE | 2018-07-19 19:15 | NUR ---
PT RESTING IN BED ANXIOUS TO BE DISCHARGED TO [facility]: DTR MATHEW, SON,LUPE HAS BEEN INFORMED ABOUT THE DISCHARGE TO SNF.REPORT CALLED IN TO DANE OLIVIA OF [facility].RFA GAUGE 20 HEPLOCK INTACT TO CONTINUE ATB IV FOR ESBL URINE.
--- NOTE | 2018-07-19 19:23 | NUR ---
CALLED BAILEY C/O TENISHA ABOUT THE ETA OF THE AMBULANCE TRIP NO [id number].
--- NOTE | 2018-07-19 19:45 | NUR ---
RN INITIAL NOTES: RECEIVED REPORT FROM SHANITA VELA. PT DC [place] AT 1930 TO [facility]. ALL DC PAPER WORKS READY. IV ACCESS PATENT AND FLUSHING WELL, ON HL. SALINAS CATHETER IN PLACED DRAIN ING INTO YELLOW COLORED URINE. PT A/O X2-3, ON RA RESPIRATION EVEN AND UNLABORED. SAFETY PRECAUTIONS FOR FALL INITIATED, CALL LIGHT IN REACH, WILL CONTINUE MONITORING PT.
--- NOTE | 2018-07-19 19:51 | NUR ---
PRN ZOFRAN: PT COMPLAINING SHE'S FEELING SEA-SICK AND WOULD LIKE ZOFRAN BEFORE SHE LEAVES, PRN ZOFRAN 4MG IVP ADMINISTERED AT THIS TIME.
--- NOTE | 2018-07-19 20:15 | NUR ---
DC NOTES: EMT CAME TO SALES ASSISTANT DISPLAYS PT, PT DC TODAY TO [facility], REPORT GIVEN BY DAY RN, ALL DC PAPER WORKS SIGNED AND COMPLETED BY DAY RN, INVENTORY OF BELONGINGS COMPLETED, COPY OF DC PAPER WORKS HANDED OVER TO EMT, INCLUDING BELONGINGS, ARMBAND REMOVED, IV ACCNELLY SALINAS KEPT ORDERED. VS TAKEN AND RECORDED. PT LEFT IN STABLE CONDITION, ACCOMPANIED BY EMT.
[2018-07-23] MEDS ORDERED: VANC125C11 PO (15:02)
== END 2018-07-19 20:18 | DRG 371 ==
LOC: ER 13:37 → MEDSG2 17:27
PROVIDERS: ADMIT Nurse Practitioner Acute Care; ATTEND Nurse Practitioner Acute Care
DX: A04.71 Enterocolitis due to Clostridium difficile, recurrent (principal); J15.9 Unspecified bacterial pneumonia; E44.0 Moderate protein-calorie malnutrition; D68.59 Other primary thrombophilia; N39.0 Urinary tract infection, site not specified; J90 Pleural effusion, not elsewhere classified; N17.9 Acute kidney failure, unspecified; E86.0 Dehydration; I48.91 Unspecified atrial fibrillation; E03.9 Hypothyroidism, unspecified; I10 Essential (primary) hypertension; K21.9 Gastro-esophageal reflux disease without esophagitis; Z90.710 Acquired absence of both cervix and uterus; Z86.73 Personal history of transient ischemic attack (TIA), and cerebral infarction without residual deficits; G89.29 Other chronic pain; Z88.0 Allergy status to penicillin; Z88.2 Allergy status to sulfonamides; Z88.8 Allergy status to other drugs, medicaments and biological substances; Z79.899 Other long term (current) drug therapy; D63.8 Anemia in other chronic diseases classified elsewhere; L30.9 Dermatitis, unspecified; B96.20 Unspecified Escherichia coli [E. coli] as the cause of diseases classified elsewhere; M79.7 Fibromyalgia; L22 Diaper dermatitis; M19.90 Unspecified osteoarthritis, unspecified site
CPT/HCPCS: 36415; 71045-TC; 71046; 80048-TC; 80061-TC; 80076-TC; 81000-TC; 82272-TC; 83605-TC; 83690-TC; 83735-TC; 84100-TC; 84484-TC; 85025-TC; 85730-TC; 87040-TC; 87045-TC; 87081-TC; 87086-TC; 87186-TC; 89055; 93307-TC; 97110-TC; 97116-TC; 97530-TC; A4216; G0378; J0456; J1650; J1956; J2405; J3475; J7030; J7060

== ENCOUNTER 2018-07-20 22:31 | Inpatient (IN) | payer MEDICARE ==
[~2018-07-20] VITALS: Ht 165.1 cm; Wt 74.0 kg
[~2018-07-20 22:31] MED LIST changes: +APIX2.5T PO; +CRAN400T3 PO; +DILT240C88 PO; +DIPH25TA25 PO; +DOXA2TAB2 PO; +ESZO3TAB27 PO; +HYDR-4076 PO; +IPRA3AMP22 IH; +MERO500V3 IV; +METH1TAB30 PO; +NITR100C11 PO; +POLY17PO29 PO; +TRAM50TA2 PO; +TRAZ-182 PO; +VANC125C11 PO
[2018-07-20] MEDS ORDERED: PANTOPRAZOLE 40 MG VIAL ONE (22:59)
[2018-07-20] MEDS ORDERED: METRONIDAZOLE 500MG/ NS 100ML 100 ML IV ONE (22:59)
[2018-07-20] MEDS ORDERED: PANTOPRAZOLE 40 MG VIAL IV ONE (23:00)
[2018-07-20] MEDS ORDERED: FAMOTIDINE/PF INJ 20 MG/2 ML VIAL IV ONE ×2 (23:00)
[2018-07-20] MEDS ORDERED: FLAGYL/NS RTU 500 MG/100 ML PIGGYBACK IV ONE (23:00)
[2018-07-20 23:11] LABS: BASOPHILS % (AUTO) 0.2 % (0.0-2.0); EOSINOPHILS % (AUTO) 1.4 % (0.0-6.0); HEMATOCRIT 34 % (33-45); LYMPHOCYTES # (AUTO) 0.9 /CMM (0.8-4.8); LYMPHOCYTES % (AUTO) 6.7 % (20.0-44.0); MEAN CORPUSCULAR HGB CONC 32 g/dl (31.0-36.0); MEAN CORPUSCULAR VOLUME 100 fL (82-100); MONOCYTES # (AUTO) 0.6 /CMM (0.1-1.30); MONOCYTES % (AUTO) 4.2 % (2.0-12.0); NEUTROPHILS # (AUTO) 11.9 /CMM (1.8-8.9); NEUTROPHILS % (AUTO) 87.5 % (43.0-81.0); PLATELET COUNT (AUTO) 297 /CMM (150-450); RED BLOOD CELL COUNT(AUTO) 3.42 MIL/uL (4.0-5.2); WHITE BLOOD COUNT (AUTO) 13.6 K/uL (4.3-11.0)
[2018-07-20 23:32] LABS: ALANINE AMINOTRANSFERASE 22 U/L (12-78); ALBUMIN 2.6 g/dL (3.4-5.0); ALKALINE PHOSPHATASE 110 U/L (46-116); ASPARTATE AMINOTRANSFERASE 12 U/L (15-37); B-TYPE NATRIURETIC PEPTIDE 3180 PG/ML (0-125); BILIRUBIN,DIRECT 0.1 mg/dL (0.0-0.2); BILIRUBIN,TOTAL 0.3 mg/dL (0.2-1.0); CARBON DIOXIDE 28 mmol/L (21-32); CHLORIDE 111 mmol/L (98-107); CREATININE 1.2 mg/dL (0.6-1.3); GLUCOSE 94 mg/dL (74-106); LIPASE 122 U/L (73-393); POTASSIUM 4.1 mmol/L (3.5-5.1); SODIUM SERUM 145 mmol/L (136-145); TOTAL PROTEIN, SERUM 6.1 g/dL (6.4-8.2); UREA NITROGEN, BLOOD 20 mg/dL (7-18)
[2018-07-20 23:47] LABS: APPEARANCE,URINE Cloudy (CLEAR); BILIRUBIN,URINE Negative (NEGATIVE); BLOOD, URINE Negative Ery/uL (NEGATIVE); COLOR,URINE Amber (YELLOW); KETONES,URINE Trace (NEGATIVE); LEUKOCYTE ESTERASE ,URINE Small (NEGATIVE); NITRITE, URINE Negative (NEGATIVE); PH,URINE 5.5 (5.0-8.0); PROTEIN,URINE 30 mg/dl (NEGATIVE); UGLUCOSE Negative (NEGATIVE); UROBILINOGEN,URINE 0.2 EU/dL (0.2)
[2018-07-21] MEDS ORDERED: IOHEXOL-300 100 ML VIAL IV ONE (00:13)
[2018-07-21] MEDS ORDERED: CT SWABBABLE VALVE TRANS SET 1 EA INFUS.SET MC ONE (00:13)
[2018-07-21] MEDS ORDERED: IV NS 0.9% 250 ML IV ONE (00:13)
[2018-07-21 00:17] LABS: BACTERIA,URINE None seen /HPF (None Seen); SQUAMOUS EPITHELIAL CELL,UR Few /HPF (None Seen); WBC,URINE 0-2 /HPF (0-3); YEAST,URINE Moderate /HPF (None Seen)
[2018-07-21] MEDS ORDERED: ACETAMINOPHEN 325 MG TABLET ONE (01:21)
[2018-07-21] MEDS ORDERED: ACETAMINOPHEN 325 MG TABLET PO ONE (01:30)
[2018-07-21 01:35] LABS: BASOPHILS % (AUTO) 0.2 % (0.0-2.0); EOSINOPHILS % (AUTO) 1.2 % (0.0-6.0); HEMATOCRIT 33 % (33-45); HEMOGLOBIN 10.6 g/dL (11.5-14.8); LYMPHOCYTES # (AUTO) 0.8 /CMM (0.8-4.8); LYMPHOCYTES % (AUTO) 5.9 % (20.0-44.0); MEAN CORPUSCULAR HGB CONC 32 g/dl (31.0-36.0); MEAN CORPUSCULAR VOLUME 99 fL (82-100); MONOCYTES # (AUTO) 0.7 /CMM (0.1-1.30); NEUTROPHILS # (AUTO) 12.4 /CMM (1.8-8.9); NEUTROPHILS % (AUTO) 87.7 % (43.0-81.0); PLATELET COUNT (AUTO) 261 /CMM (150-450); RED BLOOD CELL COUNT(AUTO) 3.33 MIL/uL (4.0-5.2); WHITE BLOOD COUNT (AUTO) 14.2 K/uL (4.3-11.0)
[2018-07-21] MEDS ORDERED: MORPHINE SULFATE INJ 2 MG/ML DISP.SYRIN IV PRN (03:00)
[2018-07-21] MEDS ORDERED: ACETAMINOPHEN 325 MG TABLET PO PRN (03:00)
[2018-07-21] MEDS ORDERED: MAG HYDROX/AL HYDROX/SIMETH 30 ML UDC PO PRN (03:00)
[2018-07-21] MEDS ORDERED: MAGNESIUM HYDROXIDE 30 ML UDC PO PRN (03:00)
[2018-07-21] MEDS ORDERED: ONDANSETRON HCL/PF 4 MG/2 ML VIAL IVP PRN (03:00)
[2018-07-21 04:00] VITALS: BP 101/53
[2018-07-21] MEDS: IV NS 0.9% 1,000 ML IV PRN ×2 (04:26→22:16)
[2018-07-21] MEDS ORDERED: METRONIDAZOLE 500MG/ NS 100ML 100 ML IV ONE (04:47)
[2018-07-21] MEDS: METRONIDAZOLE 500MG/ NS 100ML 500 MG in PREMIX 1 EA IV SCH ×2 (05:22→12:48)
[2018-07-21] MEDS ORDERED: CALC500T63 PO (07:56)
[2018-07-21] MEDS ORDERED: NITR100C6 PO (07:56)
[2018-07-21] MEDS ORDERED: AMLO5TAB9 PO (07:56)
[2018-07-21 08:00] VITALS: BP 113/57
[2018-07-21] MEDS: PANTOPRAZOLE 40 MG TABLET.DR PO SCH (08:16)
[2018-07-21] MEDS: HYDROCODONE/APAP 5/325MG 1 EACH TABLET PO PRN (09:25)
[2018-07-21] MEDS: DILTIAZEM HCL CD 240 MG PO SCH (12:43)
[2018-07-21] MEDS: AMLODIPINE BESYLATE 5 MG TABLET PO SCH (12:43)
[2018-07-21] MEDS: hydrALAZINE HCL 25 MG TABLET PO SCH ×2 (12:43→17:00)
[2018-07-21] MEDS: VALSARTAN 80 MG TABLET PO SCH (12:43)
[2018-07-21] MEDS: VANCOMYCIN HCL 125 MG/2.5 ML ORAL.SUSP PO SCH ×3 (12:44→23:38)
[2018-07-21] MEDS: LEVOTHYROXINE SODIUM 88 MCG TABLET PO SCH (12:44)
[2018-07-21] MEDS: CALCIUM CARBONATE 500 MG TAB.CHEW PO SCH (12:44)
[2018-07-21] MEDS: PREGABALIN 100 MG CAPSULE PO SCH ×2 (12:44→17:30)
[2018-07-21 16:00] VITALS: BP 104/48
[2018-07-21 20:00] VITALS: BP 114/55
[2018-07-21] MEDS: TEMAZEPAM 15 MG CAPSULE PO PRN (22:11)
[2018-07-22] MEDS: VANCOMYCIN HCL 125 MG/2.5 ML ORAL.SUSP PO SCH ×3 (05:41→17:44)
[2018-07-22 07:27] LABS: BASOPHILS % (AUTO) 0.4 % (0.0-2.0); EOSINOPHILS % (AUTO) 1.8 % (0.0-6.0); HEMATOCRIT 33 % (33-45); HEMOGLOBIN 10.5 g/dL (11.5-14.8); LYMPHOCYTES % (AUTO) 8.9 % (20.0-44.0); MEAN CORPUSCULAR HGB CONC 33 g/dl (31.0-36.0); MEAN CORPUSCULAR VOLUME 98 fL (82-100); MONOCYTES # (AUTO) 0.9 /CMM (0.1-1.30); NEUTROPHILS % (AUTO) 80.9 % (43.0-81.0); PLATELET COUNT (AUTO) 232 /CMM (150-450); RED BLOOD CELL COUNT(AUTO) 3.31 MIL/uL (4.0-5.2); WHITE BLOOD COUNT (AUTO) 11.1 K/uL (4.3-11.0)
[2018-07-22] MEDS ORDERED: Z GUARD REMEDY 2 OZ OINT TP PRN (07:30)
[2018-07-22] MEDS ORDERED: PANTOPRAZOLE 40 MG TABLET.DR PO SCH (07:30)
[2018-07-22 07:47] LABS: CARBON DIOXIDE 22 mmol/L (21-32); CHLORIDE 112 mmol/L (98-107); CREATININE 0.8 mg/dL (0.6-1.3); GLUCOSE 96 mg/dL (74-106); MAGNESIUM 1.6 mg/dL (1.8-2.4); PHOSPHORUS 2.9 mg/dL (2.5-4.9); POTASSIUM 4.2 mmol/L (3.5-5.1); SODIUM SERUM 144 mmol/L (136-145); UREA NITROGEN, BLOOD 16 mg/dL (7-18)
[2018-07-22] MEDS: PANTOPRAZOLE 40 MG TABLET.DR PO SCH (07:49)
[2018-07-22] MEDS: LEVOTHYROXINE SODIUM 88 MCG TABLET PO SCH (07:52)
[2018-07-22 08:00] VITALS: BP 133/60
[2018-07-22] MEDS: hydrALAZINE HCL 25 MG TABLET PO SCH ×2 (09:23→16:38)
[2018-07-22] MEDS: AMLODIPINE BESYLATE 5 MG TABLET PO SCH (09:23)
[2018-07-22] MEDS: PREGABALIN 100 MG CAPSULE PO SCH ×2 (09:23→16:38)
[2018-07-22] MEDS: VALSARTAN 80 MG TABLET PO SCH (09:24)
[2018-07-22] MEDS: CALCIUM CARBONATE 500 MG TAB.CHEW PO SCH (09:24)
[2018-07-22] MEDS: DILTIAZEM HCL CD 240 MG PO SCH (09:24)
[2018-07-22] MEDS: HYDROGEL DRESSING 90 GM TUBE TP SCH ×2 (09:34→21:00)
[2018-07-22] MEDS: Magnesium 1GM/D5W 100ML PREMIX 100 ML IV SCH ×2 (09:45→10:46)
[2018-07-22 16:00] VITALS: BP 130/87
[2018-07-22] MEDS: HYDROCODONE/APAP 5/325MG 1 EACH TABLET PO PRN (16:38)
[2018-07-22 20:00] VITALS: BP 95/40
[2018-07-22] MEDS: IV NS 0.9% 1,000 ML IV PRN (20:18)
[2018-07-22] MEDS: TEMAZEPAM 15 MG CAPSULE PO PRN (21:42)
[2018-07-23] MEDS: VANCOMYCIN HCL 125 MG/2.5 ML ORAL.SUSP PO SCH ×4 (00:11→17:44)
[2018-07-23] MEDS: HYDROCODONE/APAP 5/325MG 1 EACH TABLET PO PRN ×3 (04:21→17:46)
[2018-07-23 08:00] VITALS: BP 123/49
[2018-07-23 08:03] LABS: BASOPHILS % (AUTO) 0.3 % (0.0-2.0); EOSINOPHILS % (AUTO) 0.8 % (0.0-6.0); HEMATOCRIT 30 % (33-45); HEMOGLOBIN 10.1 g/dL (11.5-14.8); LYMPHOCYTES # (AUTO) 1.2 /CMM (0.8-4.8); LYMPHOCYTES % (AUTO) 11.1 % (20.0-44.0); MEAN CORPUSCULAR HGB CONC 33 g/dl (31.0-36.0); MEAN CORPUSCULAR VOLUME 99 fL (82-100); MONOCYTES % (AUTO) 9.2 % (2.0-12.0); NEUTROPHILS # (AUTO) 8.5 /CMM (1.8-8.9); NEUTROPHILS % (AUTO) 78.6 % (43.0-81.0); PLATELET COUNT (AUTO) 212 /CMM (150-450); RED BLOOD CELL COUNT(AUTO) 3.05 MIL/uL (4.0-5.2); WHITE BLOOD COUNT (AUTO) 10.8 K/uL (4.3-11.0)
[2018-07-23 08:24] LABS: CALCIUM, SERUM 8.7 mg/dL (8.5-10.1); CARBON DIOXIDE 21 mmol/L (21-32); CHLORIDE 110 mmol/L (98-107); GLUCOSE 115 mg/dL (74-106); MAGNESIUM 1.9 mg/dL (1.8-2.4); POTASSIUM 4.3 mmol/L (3.5-5.1); SODIUM SERUM 139 mmol/L (136-145); UREA NITROGEN, BLOOD 21 mg/dL (7-18)
[2018-07-23] MEDS: hydrALAZINE HCL 25 MG TABLET PO SCH ×2 (09:00→17:00)
[2018-07-23] MEDS: AMLODIPINE BESYLATE 5 MG TABLET PO SCH (09:00)
[2018-07-23] MEDS: VALSARTAN 80 MG TABLET PO SCH (09:00)
[2018-07-23] MEDS: DILTIAZEM HCL CD 240 MG PO SCH (09:00)
[2018-07-23] MEDS: CALCIUM CARBONATE 500 MG TAB.CHEW PO SCH (09:17)
[2018-07-23] MEDS: PREGABALIN 100 MG CAPSULE PO SCH ×2 (09:18→17:44)
[2018-07-23] MEDS: PANTOPRAZOLE 40 MG TABLET.DR PO SCH (09:21)
[2018-07-23] MEDS: LEVOTHYROXINE SODIUM 88 MCG TABLET PO SCH (09:21)
[2018-07-23] MEDS: HYDROGEL DRESSING 90 GM TUBE TP SCH (11:20)
[2018-07-23] MEDS ORDERED: VANC125C11 PO (15:02)
[2018-07-23 16:00] VITALS: BP 139/78
[2018-07-23 17:00] VITALS: BP 119/59
== END 2018-07-23 19:00 | DRG 371 ==
LOC: ER 22:33 → TELE 07-21 02:42 → MED 07-21 03:30
PROVIDERS: ATTEND Student in an Organized Health Care Education/Training Program
DX: A04.71 Enterocolitis due to Clostridium difficile, recurrent (principal); L89.153 Pressure ulcer of sacral region, stage 3; N39.0 Urinary tract infection, site not specified; N17.9 Acute kidney failure, unspecified; J90 Pleural effusion, not elsewhere classified; J98.11 Atelectasis; D68.59 Other primary thrombophilia; E44.0 Moderate protein-calorie malnutrition; N13.0 Hydronephrosis with ureteropelvic junction obstruction; I11.0 Hypertensive heart disease with heart failure; I50.9 Heart failure, unspecified; I27.20 Pulmonary hypertension, unspecified; D63.8 Anemia in other chronic diseases classified elsewhere; E86.0 Dehydration; E83.42 Hypomagnesemia; K21.9 Gastro-esophageal reflux disease without esophagitis; I48.91 Unspecified atrial fibrillation; H91.90 Unspecified hearing loss, unspecified ear; M79.7 Fibromyalgia; Z90.710 Acquired absence of both cervix and uterus; Z87.440 Personal history of urinary (tract) infections; Z86.73 Personal history of transient ischemic attack (TIA), and cerebral infarction without residual deficits; Z79.01 Long term (current) use of anticoagulants; G89.29 Other chronic pain; Z88.0 Allergy status to penicillin; Z88.2 Allergy status to sulfonamides; Z79.899 Other long term (current) drug therapy; F03.90 Unspecified dementia, unspecified severity, without behavioral disturbance, psychotic disturbance, mood disturbance, and anxiety; E03.9 Hypothyroidism, unspecified; F17.200 Nicotine dependence, unspecified, uncomplicated; B96.20 Unspecified Escherichia coli [E. coli] as the cause of diseases classified elsewhere; M19.90 Unspecified osteoarthritis, unspecified site; L98.9 Disorder of the skin and subcutaneous tissue, unspecified; R23.3 Spontaneous ecchymoses; K80.20 Calculus of gallbladder without cholecystitis without obstruction; N31.9 Neuromuscular dysfunction of bladder, unspecified
CPT/HCPCS: 36415; 71045-TC; 80048-TC; 80076-TC; 81000-TC; 82962-TC; 83605-TC; 83690-TC; 83735-TC; 83880; 84100-TC; 84484-TC; 85025-TC; 85730-TC; 87040-TC; 87081-TC; 87086-TC; 93971-TC; 97110-TC; 97116-TC; 97530-TC; A4216; A6248; C9113; G0378; J2270; J3475; J3490; J7030; J7050; Q9967

== ENCOUNTER 2018-08-14 01:39 | Inpatient (IN) | payer MEDICARE ==
[~2018-08-14] VITALS: Ht 160 cm; Wt 68.0 kg
[~2018-08-14 01:39] MED LIST changes: -CALC-903 PO; +CALC500T63 PO; -MERO500V3 IV; -NITR100C11 PO; +NITR100C6 PO; -TRAZ-182 PO
--- NOTE | 2018-08-14 03:00 | NUR ---
TELE/RN NOTES RECEIVED A DIRECT ADMIT PATIENT FROM [facility], PATIENT ARRIVED ON A GURNEY ACCOMPANIED BY 2 EMT. PATIENT AWAKE, ALERT X3, ABLE TO VERBALIZE NEEDS, NO PAIN REPORTED, SKIN WARM TO TOUCH, COOPERATIVE BUT HARD OF HEARING, WITH SALINAS, PATENT, IV SITE ON LEFT AC, BELONGINGS CHECK, SKIN CHECH WITH SACRAL PRESSURE ULCER AND REDNESS ON GROIN, BLE DISCOLORATION.VITAL SIGNS CHECK, MD DE LA ROSA ADMITTING PATIENT. WII. BED LOCKED, CALL LIGHTS
[2018-08-14] MEDS ORDERED: Z GUARD REMEDY 2 OZ OINT TP PRN (04:00)
[2018-08-14] MEDS ORDERED: MAG HYDROX/AL HYDROX/SIMETH 30 ML UDC PO PRN (04:00)
[2018-08-14] MEDS ORDERED: MAGNESIUM HYDROXIDE 30 ML UDC PO PRN (04:00)
[2018-08-14] MEDS ORDERED: ONDANSETRON HCL/PF 4 MG/2 ML VIAL IVP PRN (04:00)
[2018-08-14 04:58] LABS: BASOPHILS % (AUTO) 0.7 % (0.0-2.0); EOSINOPHILS % (AUTO) 1.1 % (0.0-6.0); HEMATOCRIT 29 % (33-45); HEMOGLOBIN 9.5 g/dL (11.5-14.8); LYMPHOCYTES # (AUTO) 0.4 /CMM (0.8-4.8); LYMPHOCYTES % (AUTO) 6.6 % (20.0-44.0); MEAN CORPUSCULAR HGB CONC 33 g/dl (31.0-36.0); MEAN CORPUSCULAR VOLUME 96 fL (82-100); MONOCYTES # (AUTO) 0.6 /CMM (0.1-1.30); MONOCYTES % (AUTO) 10.8 % (2.0-12.0); NEUTROPHILS # (AUTO) 4.8 /CMM (1.8-8.9); NEUTROPHILS % (AUTO) 80.8 % (43.0-81.0); PLATELET COUNT (AUTO) 293 /CMM (150-450); RED BLOOD CELL COUNT(AUTO) 3.01 MIL/uL (4.0-5.2); WHITE BLOOD COUNT (AUTO) 5.9 K/uL (4.3-11.0)
[2018-08-14 05:18] LABS: ALANINE AMINOTRANSFERASE 15 U/L (12-78); ALBUMIN 2.4 g/dL (3.4-5.0); ALKALINE PHOSPHATASE 97 U/L (46-116); ASPARTATE AMINOTRANSFERASE 13 U/L (15-37); BILIRUBIN,TOTAL 0.3 mg/dL (0.2-1.0); CALCIUM, SERUM 9.6 mg/dL (8.5-10.1); CARBON DIOXIDE 27 mmol/L (21-32); CHLORIDE 103 mmol/L (98-107); CREATININE 0.9 mg/dL (0.6-1.3); GLUCOSE 127 mg/dL (74-106); MAGNESIUM 1.7 mg/dL (1.8-2.4); POTASSIUM 3.7 mmol/L (3.5-5.1); SODIUM SERUM 140 mmol/L (136-145); TOTAL PROTEIN, SERUM 6.3 g/dL (6.4-8.2); UREA NITROGEN, BLOOD 20 mg/dL (7-18)
[2018-08-14] MEDS ORDERED: AZITHROMYCIN 500 MG VIAL ONE (05:19)
[2018-08-14 05:24] LABS: CHOLESTEROL 94 mg/dL (<200); HDL CHOLESTEROL 23 mg/dL (40-60); LDL 64 mg/dL (0-99); THYROID STIMULATING HORMONE 1.792 uIU/mL (0.358-3.74); TRIGLYCERIDES 56 mg/dL (30-150)
[2018-08-14] MEDS: AZITHROMYCIN 500 MG in IV D5W 250 ML IV SCH (05:37)
--- NOTE | 2018-08-14 07:49 | NUR ---
325-2 MS/RN NOTES PATIENT AWAKE, ALERT X3, ABLE TO VERBALIZE NEEDS, NO PAIN REPORTED, ABLE TO SLEEP DURING THE NIGHT. KEPT COMFORTABLE, WILL MONITOR. BED LOCKED, CALL LIGHTS WITHIN REACH. PROVIDED FLUIDS. ENCOURAGE FLUIDS. WILL MONITOR ANY CHANGES.WILL ENDORSE TO AM RN FOR CROW.
--- NOTE | 2018-08-14 07:59 | NUR ---
SAMPLE TESTER OPENING NOTES Received patient on 3L nasal cannula, no sob noted. Patient denies pain at this time. Patient comfortably lying down on bed, bed at the lowest setting, call light within reach.
[2018-08-14 08:00] VITALS: BP 122/79
[2018-08-14] MEDS ORDERED: ALBUTEROL FS 2.5 MG/0.5 ML VIAL.NEB NEB PRN (08:30)
[2018-08-14] MEDS ORDERED: POLYETHYLENE GLYCOL 3350 17 GM POWD.PACK PO PRN (08:30)
[2018-08-14] MEDS ORDERED: DILTIAZEM HCL CD 240 MG PO SCH (09:00)
[2018-08-14] MEDS ORDERED: METHENAMINE HIPPURATE PO SCH (09:00)
[2018-08-14] MEDS ORDERED: CRANBERRY FRUIT 400 MG PO SCH (09:00)
[2018-08-14] MEDS: Magnesium 1GM/D5W 100ML PREMIX 100 ML IV SCH ×2 (09:10→09:30)
[2018-08-14] MEDS: PREGABALIN 100 MG CAPSULE PO SCH ×2 (09:13→17:19)
[2018-08-14] MEDS: CALCIUM CARBONATE 500 MG TAB.CHEW PO SCH (09:13)
[2018-08-14] MEDS: AMLODIPINE BESYLATE 5 MG TABLET PO SCH (09:13)
[2018-08-14] MEDS: VALSARTAN 80 MG TABLET PO SCH (09:14)
[2018-08-14] MEDS: PANTOPRAZOLE 40 MG TABLET.DR PO SCH (09:14)
[2018-08-14] MEDS: hydrALAZINE HCL 25 MG TABLET PO SCH ×2 (09:14→17:19)
[2018-08-14] MEDS ORDERED: MECLIZINE HCL 25 MG TABLET PO PRN (09:30)
[2018-08-14] MEDS: CEFTRIAXONE 1 G in IV D5W 50 ML IV SCH (10:30)
[2018-08-14] MEDS: DOXAZOSIN MESYLATE (1 MG) 1 MG TABLET PO SCH (10:45)
[2018-08-14] MEDS: LACTOBACILLUS RHAMNOSUS GG 1 EACH CAP.SPRINK PO SCH ×2 (10:45→17:19)
[2018-08-14] MEDS: HYDROCODONE/APAP 5/325MG 1 EACH TABLET PO PRN ×3 (10:45→20:47)
[2018-08-14] MEDS: APIXABAN 2.5 MG TABLET PO SCH ×2 (10:47→17:20)
[2018-08-14 12:00] VITALS: BP 108/56
[2018-08-14] MEDS: DILTIAZEM HCL 30 MG TABLET PO SCH ×3 (13:23→20:10)
[2018-08-14 16:00] VITALS: BP 109/61
[2018-08-14] MEDS: ENSURE ENLIVE 237 ML LIQUID (VANILLA) PO SCH (17:00)
--- NOTE | 2018-08-14 19:02 | NUR ---
WHITTLING ROOM OPERATOR CLOSING NOTES Patient remains on 3L nasal cannula, no sob noted. Patient denies pain at this time. Patient able to feed self with no problem. Hcino draining with no occlusion. Bed at the lowest setting, call light within reach.
--- NOTE | 2018-08-14 19:36 | NUR ---
RN MS OPENING NOTES RECEIVED PT IN BED, AWAKE ALERT ORIENTEDX3, BREATHING EVEN AND UNLABORED ON 3L O2 NC. NO SOB COUGH OR CONGESTION NOTED. NO COMPLAINT OF PAIN OR DISCOMFORT AT THIS TIME. IV ACCESS ON THE L AC 20G SL PATENT AND FLUSHING. F/C IN PLACE AND DRAINING. BED IN LOWEST LOCKED POSITION, CALL LIGHT WITHIN REACH AT ALL TIMES WILL CONTINUE TO MONITOR FREQUENTLY
[2018-08-14 20:00] VITALS: BP 104/56
[2018-08-14] MEDS ORDERED: HYDROGEL DRESSING 90 GM TUBE TP SCH (20:00)
[2018-08-14] MEDS: CLOTRIMAZOLE 1% 15 GM TUBE TP SCH (20:10)
[2018-08-14] MEDS: Z GUARD REMEDY 2 OZ OINT TP SCH (20:11)
[2018-08-14] MEDS: ZOLPIDEM TARTRATE 5 MG TABLET PO PRN (21:16)
[2018-08-14] MEDS ORDERED: Medication Not On Formulary EA (Eszopiclone (Lunesta) 3 MG) PO SCH (22:00)
[2018-08-15] VITALS: BP 109/61
[2018-08-15 04:00] VITALS: BP 110/62
[2018-08-15] MEDS: AZITHROMYCIN 500 MG in IV D5W 250 ML IV SCH (04:03)
[2018-08-15 05:16] VITALS: BP 109/61
--- NOTE | 2018-08-15 06:26 | NUR ---
RN MS CLOSING NOTES PT REMAINS IN BED, SLEEPING, AROUSES EASILY TO NAME CALL, BREATHING EVEN AND UNLABORED ON 3L O2 NC. NO SOB COUGH OR CONGESTION NOTED. NO COMPLAINT OF PAIN OR DISCOMFORT AT THIS TIME. IV ACCESS ON THE L AC 20G SL PATENT AND FLUSHING. F/C IN PLACE AND DRAINING. BED IN LOWEST LOCKED POSITION, CALL LIGHT WITHIN REACH AT ALL TIMES WILL ENDORSE TO DAY NURSE FOR CROW
[2018-08-15 06:55] LABS: BASOPHILS % (AUTO) 0.5 % (0.0-2.0); EOSINOPHILS % (AUTO) 0.6 % (0.0-6.0); HEMATOCRIT 28 % (33-45); HEMOGLOBIN 9.2 g/dL (11.5-14.8); LYMPHOCYTES # (AUTO) 0.6 /CMM (0.8-4.8); LYMPHOCYTES % (AUTO) 10.5 % (20.0-44.0); MEAN CORPUSCULAR HGB CONC 33 g/dl (31.0-36.0); MEAN CORPUSCULAR VOLUME 96 fL (82-100); MONOCYTES # (AUTO) 0.8 /CMM (0.1-1.30); MONOCYTES % (AUTO) 14.3 % (2.0-12.0); NEUTROPHILS # (AUTO) 4.1 /CMM (1.8-8.9); NEUTROPHILS % (AUTO) 74.1 % (43.0-81.0); PLATELET COUNT (AUTO) 283 /CMM (150-450); RED BLOOD CELL COUNT(AUTO) 2.91 MIL/uL (4.0-5.2); WHITE BLOOD COUNT (AUTO) 5.5 K/uL (4.3-11.0)
[2018-08-15 07:08] LABS: CALCIUM, SERUM 9.1 mg/dL (8.5-10.1); CARBON DIOXIDE 29 mmol/L (21-32); CHLORIDE 101 mmol/L (98-107); CREATININE 1.1 mg/dL (0.6-1.3); GLUCOSE 158 mg/dL (74-106); PHOSPHORUS 3.7 mg/dL (2.5-4.9); POTASSIUM 3.9 mmol/L (3.5-5.1); SODIUM SERUM 137 mmol/L (136-145); UREA NITROGEN, BLOOD 24 mg/dL (7-18)
--- NOTE | 2018-08-15 07:28 | NUR ---
TELE/RN OPENING NOTE PATIENT IN BED INS TABLE CONDITION. A/O X 3. NO SIGNS OF ACUTE DISTRESS. NO COMPLAIN OF PAIN OR DISCOMFORT. ON TELE MONITOR NOTED WITH CONTROLLED AFIB WITH RATE OF 74. ON OXYGEN 3LPM VIA NC TOLERATING WELL. ALL NEEDS ATTENDED TO. CALL LIGHT WITHIN REACH. WILL CONTINUE TO MONITOR TO ENSURE SAFETY.
--- NOTE | 2018-08-15 07:35 | NUR ---
WOUND CARE CONSULT WOUND CARE RECEIVED CONSULT FOR SACRAL PRESSURE ULCER. WOUND CARE WILL DEFER CONSULT AND TREATMENT PLANS TO PLASTIC SURGICAL TEAM WHO ARE CURRENTLY FOLLOWING THIS PATIENT. PATIENT WITH NELL AT 15, ALL PRESSURE ULCER PREVENTION MEASURES ARE NOTED TO BE IN PLACE AT THIS TIME. WILL SEE PRN.
[2018-08-15 08:00] VITALS: BP 109/52
[2018-08-15] MEDS: LEVOTHYROXINE SODIUM 88 MCG TABLET PO SCH (08:32)
[2018-08-15] MEDS: LACTOBACILLUS RHAMNOSUS GG 1 EACH CAP.SPRINK PO SCH ×2 (08:32→17:16)
[2018-08-15] MEDS: AMLODIPINE BESYLATE 5 MG TABLET PO SCH (08:32)
[2018-08-15] MEDS: CEFTRIAXONE 1 G in IV D5W 50 ML IV SCH (08:32)
[2018-08-15] MEDS: CALCIUM CARBONATE 500 MG TAB.CHEW PO SCH (08:32)
[2018-08-15] MEDS: PREGABALIN 100 MG CAPSULE PO SCH ×2 (08:32→17:16)
[2018-08-15] MEDS: PANTOPRAZOLE 40 MG TABLET.DR PO SCH (08:33)
[2018-08-15] MEDS: ENSURE ENLIVE 237 ML LIQUID (VANILLA) PO SCH ×3 (08:33→17:16)
[2018-08-15] MEDS: ASCORBIC ACID 500 MG TABLET PO SCH ×2 (08:33→17:16)
[2018-08-15] MEDS: Z GUARD REMEDY 2 OZ OINT TP SCH ×2 (08:33→20:49)
[2018-08-15] MEDS: CLOTRIMAZOLE 1% 15 GM TUBE TP SCH ×2 (08:33→17:17)
[2018-08-15] MEDS: APIXABAN 2.5 MG TABLET PO SCH ×2 (08:34→18:02)
[2018-08-15] MEDS: VALSARTAN 80 MG TABLET PO SCH (08:35)
[2018-08-15] MEDS: DILTIAZEM HCL 30 MG TABLET PO SCH ×4 (08:35→20:47)
[2018-08-15] MEDS: hydrALAZINE HCL 25 MG TABLET PO SCH ×2 (08:35→17:00)
[2018-08-15] MEDS: DOXAZOSIN MESYLATE (1 MG) 1 MG TABLET PO SCH (08:36)
--- NOTE | 2018-08-15 13:00 | NUR ---
MS/RN SEEN AND EXAMINED BY DR REYES (GI) PER DR REYES NO NEED OF EGD AT THIS TIME, PATIENT NEEDS EGD WITH BOTOX AND UNABLE TO DO IT HERE. AT THIS TIME PATIENT CLEAR TO DC ONCE MEDICAL CLEAR AND TO FOLLOW UP OUTPATIENT WHERE PATIENT HAS PREVIOUSLY SCHEDULED EGD WITH BOTOX AT [facility]. PATIENT NOTIFIED.
[2018-08-15 16:00] VITALS: BP 102/51
--- NOTE | 2018-08-15 18:28 | NUR ---
MS/RN CLOSING NOTE PATIENT IN BED IN STABLE CONDITION. A/O X 3. NO SIGNS OF ACUTE DISTRESS. NO COMPLAIN OF PAIN OR DISCOMFORT. ON OXYGEN VIA NC AT 3LPM TOLERATING WELL. ALL NEEDS ATTENDED TO. CALL LIGHT WITHIN REACH. WILL ENDORSE TO NEXT SHIFT FOR CONTINUITY OF CARE.
[2018-08-15] MEDS: HYDROCODONE/APAP 5/325MG 1 EACH TABLET PO PRN (19:03)
--- NOTE | 2018-08-15 19:31 | NUR ---
MS RN RECEIVE PT IN BED A/O X 3 RESPIRATIONS EVEN AND UNLABORED, NO S/S OF DISTRESS, SAFETY MEASURES IN PLACE. WILL CONTINUE TO MONITOR
[2018-08-15 20:00] VITALS: BP 129/60
[2018-08-15] MEDS: DOXYCYCLINE HYCLATE (100 MG) 100 MG TABLET PO SCH (20:47)
[2018-08-15] MEDS: ZOLPIDEM TARTRATE 5 MG TABLET PO PRN (20:48)
--- NOTE | 2018-08-16 06:27 | NUR ---
MS RN ASLEEP AND EASILY AWAKEN, NO C/O PAIN AT THIS TIME. RESPIRATION EVEN AND UNLABORED, KEPT CLEAN AND DRY AND COMFORTABLE. NEEDS ATTENDED AND ANTICIPATED, NURSING CARE RENDERED, OFFLOAD HEELS AND ELBOWS AT ALL TIMES. ASSISTED REPOSITION EVERY 2 HOURS. TREATMENT ORDERED, GOOD SKIN CARE PROVIDED. SAFETY MEASURES AT ALL TIMES. ENDORSE TO THE NEXT SHIFT.
--- NOTE | 2018-08-16 07:36 | NUR ---
MS RN OPENING NOTES PATIENT AWAKE AND RESTING IN BED. PATIENT SPEAKS PORTUGUESE AND RESPONSIVE TO VERBAL STIMULI. PATIENT ON OXYGEN 3 L NC. PATIENT BREATHING UNLABORED AND EVEN. PATIENT IN NO ACUTE DISTRESS. PATIENT SALINAS CATHETER HANGING TO GRAVITY. PATIENT BED LOCKED AND IN LOW POSITION. WILL CONTINUE TO MONITOR.
[2018-08-16 08:00] VITALS: BP 137/71
[2018-08-16] MEDS: LEVOTHYROXINE SODIUM 88 MCG TABLET PO SCH (08:32)
[2018-08-16] MEDS: PANTOPRAZOLE 40 MG TABLET.DR PO SCH (08:33)
[2018-08-16] MEDS: CALCIUM CARBONATE 500 MG TAB.CHEW PO SCH (08:35)
[2018-08-16] MEDS: DILTIAZEM HCL 30 MG TABLET PO SCH ×4 (08:35→21:16)
[2018-08-16] MEDS: ASCORBIC ACID 500 MG TABLET PO SCH ×2 (08:36→16:34)
[2018-08-16] MEDS: PREGABALIN 100 MG CAPSULE PO SCH ×2 (08:36→16:35)
[2018-08-16] MEDS: APIXABAN 2.5 MG TABLET PO SCH ×2 (08:37→16:37)
[2018-08-16] MEDS: VALSARTAN 80 MG TABLET PO SCH (08:38)
[2018-08-16] MEDS: DOXYCYCLINE HYCLATE (100 MG) 100 MG TABLET PO SCH ×2 (08:39→21:16)
[2018-08-16] MEDS: DOXAZOSIN MESYLATE (1 MG) 1 MG TABLET PO SCH (08:39)
[2018-08-16] MEDS: AMLODIPINE BESYLATE 5 MG TABLET PO SCH (08:39)
[2018-08-16] MEDS: hydrALAZINE HCL 25 MG TABLET PO SCH ×2 (08:40→16:59)
[2018-08-16] MEDS: CEFTRIAXONE 1 G in IV D5W 50 ML IV SCH (08:40)
[2018-08-16] MEDS: LACTOBACILLUS RHAMNOSUS GG 1 EACH CAP.SPRINK PO SCH ×2 (08:40→16:35)
[2018-08-16] MEDS: Z GUARD REMEDY 2 OZ OINT TP SCH ×2 (08:42→21:17)
[2018-08-16] MEDS: ENSURE ENLIVE 237 ML LIQUID (VANILLA) PO SCH ×3 (08:42→16:36)
[2018-08-16] MEDS: CLOTRIMAZOLE 1% 15 GM TUBE TP SCH ×2 (08:43→16:39)
[2018-08-16 09:44] LABS: CALCIUM, SERUM 9.8 mg/dL (8.5-10.1); CARBON DIOXIDE 29 mmol/L (21-32); CHLORIDE 99 mmol/L (98-107); GLUCOSE 118 mg/dL (74-106); POTASSIUM 4.8 mmol/L (3.5-5.1); SODIUM SERUM 135 mmol/L (136-145); UREA NITROGEN, BLOOD 27 mg/dL (7-18)
[2018-08-16 11:13] LABS: BASOPHILS % (AUTO) 0.5 % (0.0-2.0); EOSINOPHILS % (AUTO) 0.2 % (0.0-6.0); HEMATOCRIT 28 % (33-45); HEMOGLOBIN 9.3 g/dL (11.5-14.8); LYMPHOCYTES # (AUTO) 0.4 /CMM (0.8-4.8); LYMPHOCYTES % (AUTO) 5.2 % (20.0-44.0); MEAN CORPUSCULAR HGB CONC 34 g/dl (31.0-36.0); MEAN CORPUSCULAR VOLUME 95 fL (82-100); MONOCYTES # (AUTO) 0.9 /CMM (0.1-1.30); NEUTROPHILS % (AUTO) 83.1 % (43.0-81.0); PLATELET COUNT (AUTO) 324 /CMM (150-450); RED BLOOD CELL COUNT(AUTO) 2.91 MIL/uL (4.0-5.2); WHITE BLOOD COUNT (AUTO) 8.4 K/uL (4.3-11.0)
[2018-08-16] MEDS: FUROSEMIDE 40 MG/4 ML VIAL IV SCH ×2 (12:22→16:35)
[2018-08-16 16:00] VITALS: BP 113/50
--- NOTE | 2018-08-16 18:28 | NUR ---
MS RN NOTES PATIENT RESTING INSIDE ROOM. AWAKE, ALERT AND ORIENTED, VERBALLY RESPONSIVE AND RESPONDS TO VERBAL AND TACTILE STIMULI. NO ACUTE DISTRESS. DENIES ANY PAIN OR DISCOMFORT AT THIS TIME. PATIENT KEPT CLEAN, DRY AND COMFORTABLE. SALINAS CATHETER IN PLACE WITH YELLOW URINE OUTPUT NOTED. WILL ENDORSE TO INCOMING SHIFT FOR CROW. BED LOCKED AND IN LOW POSITION. BILATERAL UPPER SIDE RAILS UP AND LOCKED. CALL LIGHT WITHIN EASY REACH
--- NOTE | 2018-08-16 19:30 | NUR ---
RECEIVED PATIENT IN BED ASLEEP, EASILY AROUSABLE. AO X 1, ABLE TO MAKE NEEDS KNOWN. NO ACUTE DISTRESS NOTED. NO SIGNS OF PAIN NOTED. IV SITE PATENT, INTACT; FLUSHED. SALINAS CATH PATENT, INTACT; DRAINING CLEAR YELLOW URINE. SAFETY REMINDERS GIVEN. ON LOW BED WITH BILATERAL UPPER SIDE RAILS UP. CALL RHODES WITHIN EASY REACH. WILL CONTINUE TO MONITOR.
[2018-08-16 20:00] VITALS: BP 119/57
--- NOTE | 2018-08-17 06:30 | NUR ---
PATIENT ASLEEP, EASILY AROUSABLE. RESPIRATIONS EVEN. NO SIGNS OF PAIN NOTED. DUE MEDS GIVEN WITH NO ASE NOTED. NEEDS ATTENDED. KEPT CLEAN, DRY, AND COMFORTABLE. SAFETY PRECAUTIONS AND COMFORT MEASURES IN PLACE. WILL GIVE REPORT TO DAY SHIFT FOR CONTINUITY OF CARE.
[2018-08-17 06:48] LABS: BASOPHILS # (AUTO) 0.1 /CMM (0.0-0.2); BASOPHILS % (AUTO) 0.6 % (0.0-2.0); EOSINOPHILS % (AUTO) 0.1 % (0.0-6.0); HEMATOCRIT 27 % (33-45); HEMOGLOBIN 9.2 g/dL (11.5-14.8); LYMPHOCYTES # (AUTO) 0.4 /CMM (0.8-4.8); LYMPHOCYTES % (AUTO) 4.6 % (20.0-44.0); MEAN CORPUSCULAR HGB CONC 34 g/dl (31.0-36.0); MEAN CORPUSCULAR VOLUME 95 fL (82-100); MONOCYTES # (AUTO) 0.9 /CMM (0.1-1.30); MONOCYTES % (AUTO) 9.5 % (2.0-12.0); NEUTROPHILS # (AUTO) 7.6 /CMM (1.8-8.9); NEUTROPHILS % (AUTO) 85.2 % (43.0-81.0); PLATELET COUNT (AUTO) 327 /CMM (150-450); RED BLOOD CELL COUNT(AUTO) 2.86 MIL/uL (4.0-5.2)
[2018-08-17 07:04] LABS: CALCIUM, SERUM 9.6 mg/dL (8.5-10.1); CARBON DIOXIDE 27 mmol/L (21-32); CHLORIDE 100 mmol/L (98-107); GLUCOSE 140 mg/dL (74-106); POTASSIUM 4.6 mmol/L (3.5-5.1); SODIUM SERUM 136 mmol/L (136-145); UREA NITROGEN, BLOOD 33 mg/dL (7-18)
[2018-08-17 08:00] VITALS: BP 145/66
--- NOTE | 2018-08-17 08:00 | NUR ---
MS RN OPENING NOTES Received Patient resting and asleep in bed. A/O x 1 with episodes of confusion. VS stable with no acute distress. Breathing even and unlabored on 2LPM via NC with no respiratory distress. No signs and symptoms of pain noted. Chino Cath in place and operational with clear yellow urine output noted. 20g PIV on LAC clean, dry, intact and flushing well. Safety precautions in place. Bed locked and set to lowest position with side rails x [address] up[address] Bed alarm [address] place and operational. All needs rendered at this time. Will endorse plan of care to oncoming shift. Addendum: 08/17/18 at 1842 by GEOVANNA YANG RN Will continue to monitor.
[2018-08-17 08:30] VITALS: BP 108/53
[2018-08-17] MEDS: LEVOTHYROXINE SODIUM 88 MCG TABLET PO SCH (08:59)
[2018-08-17] MEDS: CEFTRIAXONE 1 G in IV D5W 50 ML IV SCH (08:59)
[2018-08-17] MEDS: LACTOBACILLUS RHAMNOSUS GG 1 EACH CAP.SPRINK PO SCH ×2 (08:59→17:21)
[2018-08-17] MEDS: PANTOPRAZOLE 40 MG TABLET.DR PO SCH (08:59)
[2018-08-17] MEDS: DOXAZOSIN MESYLATE (1 MG) 1 MG TABLET PO SCH (09:00)
[2018-08-17] MEDS: VALSARTAN 80 MG TABLET PO SCH (09:00)
[2018-08-17] MEDS: CALCIUM CARBONATE 500 MG TAB.CHEW PO SCH (09:00)
[2018-08-17] MEDS: DOXYCYCLINE HYCLATE (100 MG) 100 MG TABLET PO SCH ×2 (09:00→21:58)
[2018-08-17] MEDS: ENSURE ENLIVE 237 ML LIQUID (VANILLA) PO SCH ×3 (09:00→17:22)
[2018-08-17] MEDS: CLOTRIMAZOLE 1% 15 GM TUBE TP SCH ×2 (09:01→17:22)
[2018-08-17] MEDS: Z GUARD REMEDY 2 OZ OINT TP SCH ×2 (09:01→22:04)
[2018-08-17] MEDS: ASCORBIC ACID 500 MG TABLET PO SCH ×2 (09:04→17:22)
[2018-08-17] MEDS: PREGABALIN 100 MG CAPSULE PO SCH ×2 (09:04→17:22)
[2018-08-17] MEDS: hydrALAZINE HCL 25 MG TABLET PO SCH ×2 (09:07→17:00)
[2018-08-17] MEDS: DILTIAZEM HCL 30 MG TABLET PO SCH ×4 (09:07→21:00)
[2018-08-17] MEDS: AMLODIPINE BESYLATE 5 MG TABLET PO SCH (09:07)
[2018-08-17] MEDS: APIXABAN 2.5 MG TABLET PO SCH ×2 (09:09→17:23)
[2018-08-17 16:00] VITALS: BP 111/67
[2018-08-17] MEDS: ACETAMINOPHEN 325 MG TABLET PO PRN (18:39)
--- NOTE | 2018-08-17 18:39 | NUR ---
MS RN NOTES Administered Tylenol 650mg PO per Patients request. Patient stated mild sacral and back pain. Repositioned Patient. Provided water and snack. Dimmed light and kept room clean. Will continue to monitor.
--- NOTE | 2018-08-17 19:36 | NUR ---
MS RN CLOSING NOTES Patient resting and asleep in bed. A/O x 1 with episodes of confusion. VS stable with no acute distress. Breathing even and unlabored on 2LPM via NC with no respiratory distress. No signs and symptoms of pain noted. Chino Cath in place and operational with clear yellow urine output noted. 22g PIV on RFA clean, dry, intact and flushing well. Safety precautions in place. Bed locked and set to lowest position with side rails x [address] up[address] Bed alarm in place and operational. All needs rendered at this time. Will endorse plan of care to oncoming shift.
--- NOTE | 2018-08-17 19:55 | NUR ---
RN OPENING NOTES RECEIVED REPORT FROM DAYSHIFT RN GEOVANNA. FOUND Pt AWAKE, RESTING IN BED. NO S/S OF ACUTE DISTRESS OR SOB NOTED. Pt IS A/OX1-2, CONFUSED, Pt IS VERBAL & ABLE TO ANSWER SIMPLE QUESTIONS. RESPIRATIONS ARE EVEN AND UNLABORED. ON NC @2L O2. SALINAS CATHETER IN PLACE, DRAINING WELL. IV ACCESS ON RFA #22G, SL. SAFETY MEASURES IN PLACE. BED LOW, LOCKED, HOB ELEVATED, SIDE RAILS UP, CALL LIGHT AND BEDSIDE TABLE WITHIN REACH. BED ALARM ON. WILL CONTINUE TO MONITOR Pt's CONDITION AND SAFETY THROUGHOUT THE SHIFT.
[2018-08-17 20:00] VITALS: BP 108/53
[2018-08-18 03:40] VITALS: BP 108/53
[2018-08-18 06:38] LABS: CALCIUM, SERUM 9.8 mg/dL (8.5-10.1); CARBON DIOXIDE 29 mmol/L (21-32); CHLORIDE 102 mmol/L (98-107); GLUCOSE 140 mg/dL (74-106); POTASSIUM 4.7 mmol/L (3.5-5.1); SODIUM SERUM 138 mmol/L (136-145); UREA NITROGEN, BLOOD 39 mg/dL (7-18)
[2018-08-18 06:48] LABS: BASOPHILS % (AUTO) 0.7 % (0.0-2.0); EOSINOPHILS % (AUTO) 0.6 % (0.0-6.0); HEMATOCRIT 28 % (33-45); HEMOGLOBIN 9.4 g/dL (11.5-14.8); LYMPHOCYTES # (AUTO) 0.4 /CMM (0.8-4.8); LYMPHOCYTES % (AUTO) 5.3 % (20.0-44.0); MEAN CORPUSCULAR HGB CONC 33 g/dl (31.0-36.0); MEAN CORPUSCULAR VOLUME 95 fL (82-100); MONOCYTES # (AUTO) 0.8 /CMM (0.1-1.30); MONOCYTES % (AUTO) 11.4 % (2.0-12.0); NEUTROPHILS # (AUTO) 5.4 /CMM (1.8-8.9); PLATELET COUNT (AUTO) 293 /CMM (150-450); RED BLOOD CELL COUNT(AUTO) 2.98 MIL/uL (4.0-5.2); WHITE BLOOD COUNT (AUTO) 6.6 K/uL (4.3-11.0)
--- NOTE | 2018-08-18 07:30 | NUR ---
RN CLOSING NOTES NO SIGNIFICANT CHANGES IN Pt's CONDITION. Pt REMAINS STABLE AT THIS TIME. NO S/S OF ACUTE DISTRESS OR SOB NOTED DURING THE NIGHT. ALL NEEDS MET AND ATTENDED TO. SAFETY MEASURES IN PLACE. WILL ENDORSE TO DAYSHIFT RN FOR Pt's CROW.
--- NOTE | 2018-08-18 07:32 | NUR ---
MS RN OPENING NOTES RECEIVED PT AWAKE IN BED IN NO ACUTE SIGNS OF DISTRESS. A/O X2. VERBALLY RESPONSIVE, DENIES PAIN OR DISCOMFORTS AT THIS TIME. ON 02 VIA N/C @ 2LPM, BREATHING EVEN AND UNLABORED. IV ACCESS ON RFA G#22 INTACT AND PATENT. PT WITH SALINAS CATHETER IN PLACE WITH CLEAR YELLOWISH URINE NOTED AT BEDSIDE URINARY BAG. SAFETY MEASURES IN PLACE. BED IN LOWEST LOCKED POSITION WITH SR UP X2. BED ALARM ON. CALL LIGHT WITHIN REACH. WILL CONTINUE TO MONITOR ACCORDINGLY.
[2018-08-18] MEDS: PANTOPRAZOLE 40 MG TABLET.DR PO SCH (07:42)
[2018-08-18] MEDS: LEVOTHYROXINE SODIUM 88 MCG TABLET PO SCH (07:42)
[2018-08-18] MEDS: CEFTRIAXONE 1 G in IV D5W 50 ML IV SCH (07:57)
[2018-08-18 08:00] VITALS: BP 141/72
[2018-08-18] MEDS: AMLODIPINE BESYLATE 5 MG TABLET PO SCH (08:24)
[2018-08-18] MEDS: ASCORBIC ACID 500 MG TABLET PO SCH ×2 (08:24→16:49)
[2018-08-18] MEDS: DOXAZOSIN MESYLATE (1 MG) 1 MG TABLET PO SCH (08:24)
[2018-08-18] MEDS: LACTOBACILLUS RHAMNOSUS GG 1 EACH CAP.SPRINK PO SCH ×2 (08:25→16:49)
[2018-08-18] MEDS: VALSARTAN 80 MG TABLET PO SCH (08:25)
[2018-08-18] MEDS: PREGABALIN 100 MG CAPSULE PO SCH ×2 (08:25→16:49)
[2018-08-18] MEDS: DOXYCYCLINE HYCLATE (100 MG) 100 MG TABLET PO SCH (08:25)
[2018-08-18] MEDS: DILTIAZEM HCL 30 MG TABLET PO SCH ×4 (08:25→22:38)
[2018-08-18] MEDS: CALCIUM CARBONATE 500 MG TAB.CHEW PO SCH (08:25)
[2018-08-18] MEDS: ENSURE ENLIVE 237 ML LIQUID (VANILLA) PO SCH ×3 (08:26→16:50)
[2018-08-18] MEDS: hydrALAZINE HCL 25 MG TABLET PO SCH ×2 (08:26→16:54)
[2018-08-18] MEDS: CLOTRIMAZOLE 1% 15 GM TUBE TP SCH ×2 (08:26→16:55)
[2018-08-18] MEDS: APIXABAN 2.5 MG TABLET PO SCH ×2 (08:27→16:50)
[2018-08-18] MEDS: Z GUARD REMEDY 2 OZ OINT TP SCH ×2 (08:27→22:41)
--- NOTE | 2018-08-18 08:29 | NUR ---
RN NOTES I WAS CALLED BY DANIEL ZENDEJAS THAT PT'S SALINAS CATHETER CAME OUT. NO BLEEDING NOTED. NEW SALINAS CATHETER FR #16 INSERTED USING ASEPTIC TECHNIQUE WITHOUT PROBLEM. CLEAR YELLOW URINE OUTPUT NOTED. WILL CONTINUE TO MONITOR.
--- NOTE | 2018-08-18 10:15 | NUR ---
MS/RN Patient received Patient received from Vamshi (day shift RN).
--- NOTE | 2018-08-18 11:11 | NUR ---
MS/RN S/B Dr Bergman Seen by Dr Bergman - patient to be discharged back to SNF today.
--- NOTE | 2018-08-18 11:30 | NUR ---
MS/RN S/B Dr Myles Seen by Dr Myles - continue diltiazem.
--- NOTE | 2018-08-18 13:00 | NUR ---
MS/RN S/B Dr Solorio Seen by Dr Solorio - given increasing BUN, hold off further diuretics and reserve thoracentesis for clinical symptoms. Clinically stable for discharge.
--- NOTE | 2018-08-18 15:11 | NUR ---
MS/RN Hold discharge Discharge held at this time due to poor nutritional intake.
[2018-08-18 16:00] VITALS: BP 140/79
[2018-08-18] MEDS: ENSURE ENLIVE CHOC 237 ML CAN PO SCH (17:00)
--- NOTE | 2018-08-18 18:24 | NUR ---
MS/RN End note Patient remains stable. Still with poor oral intake, requires a lot of encouragement. All medications administered as ordered. Family updated as to plan of care. Will endore to service desk technician.
--- NOTE | 2018-08-18 19:50 | NUR ---
RN OPENING NOTES RECEIVED REPORT FROM DAYSHIFT RN CELIO. FOUND Pt AWAKE, RESTING IN BED. CAREGIVER VISITING AT BEDSIDE. Pt IS A/OX1-2, CONFUSED, Pt IS VERBAL & ABLE TO ANSWER SIMPLE QUESTIONS. Pt IS ON NC @3L-4L O2 SAT @ 95%. SALINAS CATHETER IN PLACE, DRAINING WELL. IV ACCESS ON RFA #22G, SL. SAFETY MEASURES IN PLACE. BED LOW, LOCKED, HOB ELEVATED, SIDE RAILS UP, CALL LIGHT AND BEDSIDE TABLE WITHIN REACH. BED ALARM ON. WILL CONTINUE TO MONITOR Pt's CONDITION AND SAFETY THROUGHOUT THE SHIFT.
[2018-08-18 20:00] VITALS: BP 141/63
[2018-08-18] MEDS: ACETAMINOPHEN 325 MG TABLET PO PRN (23:56)
[2018-08-19] VITALS (10 sets, daily range): BP systolic 109–154; BP diastolic 54–80
--- NOTE | 2018-08-19 00:13 | NUR ---
RN NOTES Pt WAS MOANING IN BED, SEEMED TO BE IN PAIN. WHEN ASKED Pt IF SHE WAS IN PAIN, SHE ANSWERED YES. WHEN ASKED WHERE THE PAIN WAS, SHE DID NOT ANSWER, AND KEPT MOANING QUIETLY. GOT TYLENOL FROM [facility], SCANNED AND CRUSHED THE MED TO GIVE WITH APPLE SAUCE TO Pt, BUT WHEN I ATTEMPTED TO GIVE THE MED WITH APPLE SAUCE, SHE REFUSED. EXPLAINED THAT IT WAS HER TYLENOL FOR THE PAIN MIXED IN APPLE SAUCE, Pt SAID SHE DID NOT WANT IT. HAD TO UNDO ON eMAR. WILL WASTE MED ON [facility]. Pt IS NOW RESTING QUIETLY IN ROOM.
--- NOTE | 2018-08-19 06:05 | NUR ---
RT PLACED ON SIMPLE MASK 5LPM 40% DUE TO MOUTH BREATHING, AND SpO2 91% ON NASAL CANNULA. RN AWARE. WILL CONTINUE TO MONITOR. Addendum: 08/19/18 at 0607 by JANNET NATION RT Amended: Links added.
--- NOTE | 2018-08-19 07:30 | NUR ---
MS/RN Patient received Patient received from night clerk auditor. Sleeping soundly, appears in no distress or discomfort at this time. Side rails X3 in upright position, bed in low setting, call light within reach. Will continue to monitor and ensure safety.
[2018-08-19] MEDS: LACTOBACILLUS RHAMNOSUS GG 1 EACH CAP.SPRINK PO SCH ×2 (08:39→17:08)
[2018-08-19] MEDS: CALCIUM CARBONATE 500 MG TAB.CHEW PO SCH (08:40)
[2018-08-19] MEDS: hydrALAZINE HCL 25 MG TABLET PO SCH ×2 (08:40→17:09)
[2018-08-19] MEDS: ASCORBIC ACID 500 MG TABLET PO SCH ×2 (08:40→17:08)
[2018-08-19] MEDS: PREGABALIN 100 MG CAPSULE PO SCH ×2 (08:41→17:09)
[2018-08-19] MEDS: LEVOTHYROXINE SODIUM 88 MCG TABLET PO SCH (08:41)
[2018-08-19] MEDS: PANTOPRAZOLE 40 MG TABLET.DR PO SCH (08:41)
[2018-08-19] MEDS: VALSARTAN 80 MG TABLET PO SCH (08:41)
[2018-08-19] MEDS: DOXAZOSIN MESYLATE (1 MG) 1 MG TABLET PO SCH (08:41)
[2018-08-19] MEDS: AMLODIPINE BESYLATE 5 MG TABLET PO SCH (08:42)
[2018-08-19] MEDS: DILTIAZEM HCL 30 MG TABLET PO SCH ×4 (08:42→21:00)
[2018-08-19] MEDS: CLOTRIMAZOLE 1% 15 GM TUBE TP SCH ×2 (08:43→17:12)
[2018-08-19] MEDS: Z GUARD REMEDY 2 OZ OINT TP SCH ×2 (08:43→21:00)
[2018-08-19] MEDS: APIXABAN 2.5 MG TABLET PO SCH ×2 (08:44→17:11)
[2018-08-19] MEDS: ENSURE ENLIVE CHOC 237 ML CAN PO SCH ×3 (08:44→17:10)
[2018-08-19] MEDS: ENSURE ENLIVE 237 ML LIQUID (VANILLA) PO SCH ×3 (08:45→17:00)
--- NOTE | 2018-08-19 08:45 | NUR ---
MS/RN Meal percentages 25% of breakfast eaten.
--- NOTE | 2018-08-19 09:00 | NUR ---
MS/RN Medications Morning medications administered with apple sauce and apple juice.
--- NOTE | 2018-08-19 10:15 | NUR ---
MS/RN S/B PT Seen by PT - able to get out of bed and march on spot.
--- NOTE | 2018-08-19 11:01 | NUR ---
MS/RN S/B Misha Gama DNP Seen by DNP - patient for discharge today to SNF.
--- NOTE | 2018-08-19 17:00 | NUR ---
MS/RN Hold discharge Discharge held for today as nutritional status to be monitored for next 24-48 hours. Daughter made aware.
--- NOTE | 2018-08-19 18:04 | NUR ---
MS/RN End note Patient remains in stable condition. Meal percentages recorded, intake has improved since yesterday. All medications administered as ordered, given crushed with apple saude and apple juice. Skin kept clean and dry, mepilex applied to sacral area to prevent further breakdown. All needs and concerns addressed, will endorse to assembler 1st shift.
--- NOTE | 2018-08-19 19:45 | NUR ---
KNITTER MECHANIC RCD PT FROM 3W REPORT GIVEN AT BEDSIDE; SPO2 66%; PT REACTS TO LIGHT STIMULI DOES NOT FOLLOW COMMANDS. DIMINISHED LUNG SOUNDS TO LEFT CHEST SIDE. PT NOTED WITH POSSIBLE VOMIT TO CHEST AREA. PT BELONGINGS ON BELONG SHEET MISSING (BLANKET, SHIRTS, PANTS) OTHER BELONGINGS CELL PHONE, [employer]AN AND HEARING AIDS NOT DOCUMENTED. CXR AND ABG RESULTS PENDING. CALLLED DAUGHTER MASON RAMIREZ TO NOTIFY HER PT IS IN ICU.
--- NOTE | 2018-08-19 19:50 | NUR ---
CUSTOMS AND BORDER PROTECTION OFFICER ABG RESULTS PH 7.204, PCO2 89.5, PO2 46, HCO3 34.5; RELAYED RESULTS TO DR RITA Mcbride/ORDERS TO PLACE PT ON BIPAP. ABG AT 2100. INFORMED MD THAT THERE IS A DELAY WITH CXR READING DUE TO TECHNICAL PROBLEMS.
[2018-08-19] MEDS ORDERED: MEROPENEM 500 MG in IV NS 0.9% 50 ML IV ONE (20:00)
--- NOTE | 2018-08-19 20:04 | NUR ---
MS/RN Change in condition Patient noted to be desaturating, levels from mid 70's to 85% on non rebreather mask. Natan DNP on unit and made aware and order given for stat AGB and CXR. Vital signs recorded, bp 145/78, HR 89, resp 28. Placed on tele monitor which showed a-fib. DNP made aware and order given to transfer patient to ICU as unable to stabilize saturation even while receiving 15l via non rebreather mask.
--- NOTE | 2018-08-19 20:22 | NUR ---
RT NOTE PATIENT PLACED ON BIPAP PER MD ORDER WITH FOLLOWING SETTINGS;IPAP 20 , EPAP 5 , RR 20, FIO2 100%. PATIENT TOLERATED CURRENT SETTINGS . WILL CONTINUE TO MONITOR PATIENT.
[2018-08-19] MEDS ORDERED: IV NS 0.9% 250 ML IV PRN (20:30)
--- NOTE | 2018-08-19 21:00 | NUR ---
WEB ANALYST WILL PLACE SCDS ONCE AVAILABLE.
--- NOTE | 2018-08-19 21:15 | NUR ---
CREATIVE RESOURCE MANAGER CALLED RT FOR ABG.
--- NOTE | 2018-08-19 21:30 | NUR ---
BANKING PARALEGAL CALLED RT FOR ABG. PENDING MEPILEX PLACEMENT TO NASAL BRIDGE.
--- NOTE | 2018-08-19 22:10 | NUR ---
DESK DIRECTOR ENDORSED ABG AND CXR RESULTS TO MD. NO NEW ORDERS. CONTINUE TO MONITOR PT. PTS DAUGHTER LEFT BEDSIDE AT THIS TIME; ALL QUESTIONS AND CONCERNS DISCUSSED. PROVIDED WITH PHONE NUMBER AND VISITING HOURS.
--- NOTE | 2018-08-19 22:20 | NUR ---
VENDING MACHINE REPAIRER DAUGHTER HAD ALREADY LEFT BEDSIDE WHEN CONSENT FOR PROCEDURE WAS ORDERED WILL ENDORSE TO NEXT SHIFT.
[2018-08-20] VITALS (31 sets, daily range): BP systolic 102–156; BP diastolic 55–97
--- NOTE | 2018-08-20 00:53 | NUR ---
NT SX'D THE PT AND OBTAINED LARGE AMT OF THICK YELLOW, BROWN SECRETIONS. RN NOTIFIED.
--- NOTE | 2018-08-20 01:00 | NUR ---
RESIDENTIAL SUBSTANCE ABUSE COUNSELOR PT AWAKE AT THIS TIME; ABLE TO MAKE NEEDS KNOWN.
--- NOTE | 2018-08-20 03:55 | NUR ---
FOREIGN EXCHANGE DEALER PT ATTEMPTING TO REMOVE BIPAP; EDUCATED PT THE NEED FOR BIPAP AT THIS TIME. REQUIRES REINFORCEMENT. CONTINUE TO MONITOR.
--- NOTE | 2018-08-20 04:00 | NUR ---
COMMERCIAL FOOD INSTRUCTOR PT AWAKE; ABLE TO FOLLOW COMMANDS AND ASSIST WITH TURNING. TOLERATED BED BATH WELL. REMAINS ON BIPAP.
[2018-08-20] MEDS: MEROPENEM 500 MG in IV NS 0.9% 100 ML IV SCH ×3 (04:01→20:57)
[2018-08-20 04:41] LABS: BASOPHILS % (AUTO) 0.3 % (0.0-2.0); HEMATOCRIT 29 % (33-45); HEMOGLOBIN 9.6 g/dL (11.5-14.8); LYMPHOCYTES # (AUTO) 0.2 /CMM (0.8-4.8); LYMPHOCYTES % (AUTO) 1.8 % (20.0-44.0); MEAN CORPUSCULAR HGB CONC 33 g/dl (31.0-36.0); MEAN CORPUSCULAR VOLUME 97 fL (82-100); MONOCYTES # (AUTO) 0.9 /CMM (0.1-1.30); MONOCYTES % (AUTO) 8.7 % (2.0-12.0); NEUTROPHILS # (AUTO) 9.5 /CMM (1.8-8.9); NEUTROPHILS % (AUTO) 89.2 % (43.0-81.0); PLATELET COUNT (AUTO) 334 /CMM (150-450); RED BLOOD CELL COUNT(AUTO) 3.01 MIL/uL (4.0-5.2); WHITE BLOOD COUNT (AUTO) 10.7 K/uL (4.3-11.0)
--- NOTE | 2018-08-20 04:47 | NUR ---
SUPERVISOR LIQUID YEAST PT CONTINUES TO REMOVE BIPAP; EDUCATED PT ON NEED FOR BIPAP; PT REQUIRES REINFORCEMENT.
[2018-08-20 04:58] LABS: ALANINE AMINOTRANSFERASE 13 U/L (12-78); ALBUMIN 2.8 g/dL (3.4-5.0); ALKALINE PHOSPHATASE 113 U/L (46-116); ASPARTATE AMINOTRANSFERASE 13 U/L (15-37); BILIRUBIN,TOTAL 0.3 mg/dL (0.2-1.0); CALCIUM, SERUM 10.6 mg/dL (8.5-10.1); CARBON DIOXIDE 32 mmol/L (21-32); CHLORIDE 106 mmol/L (98-107); CREATININE 1.1 mg/dL (0.6-1.3); GLUCOSE 153 mg/dL (74-106); MAGNESIUM 1.8 mg/dL (1.8-2.4); PHOSPHORUS 3.9 mg/dL (2.5-4.9); POTASSIUM 4.9 mmol/L (3.5-5.1); SODIUM SERUM 143 mmol/L (136-145); TOTAL PROTEIN, SERUM 6.8 g/dL (6.4-8.2); UREA NITROGEN, BLOOD 40 mg/dL (7-18)
--- NOTE | 2018-08-20 05:29 | NUR ---
ROUTE DELIVERY DRIVER RT PLACED MEPILEX ON NASAL BRIDGE AT THIS TIME.
[2018-08-20] MEDS: VALSARTAN 80 MG TABLET PO SCH (08:16)
[2018-08-20] MEDS: LACTOBACILLUS RHAMNOSUS GG 1 EACH CAP.SPRINK PO SCH ×2 (08:16→16:40)
[2018-08-20] MEDS: AMLODIPINE BESYLATE 5 MG TABLET PO SCH (08:16)
[2018-08-20] MEDS: DILTIAZEM HCL 30 MG TABLET PO SCH ×4 (08:16→20:59)
[2018-08-20] MEDS: DOXAZOSIN MESYLATE (1 MG) 1 MG TABLET PO SCH (08:17)
[2018-08-20] MEDS: PANTOPRAZOLE 40 MG TABLET.DR PO SCH (08:17)
[2018-08-20] MEDS: hydrALAZINE HCL 25 MG TABLET PO SCH ×2 (08:17→16:41)
[2018-08-20] MEDS: CALCIUM CARBONATE 500 MG TAB.CHEW PO SCH (08:17)
[2018-08-20] MEDS: LEVOTHYROXINE SODIUM 88 MCG TABLET PO SCH (08:17)
[2018-08-20] MEDS: ASCORBIC ACID 500 MG TABLET PO SCH ×2 (08:17→16:40)
[2018-08-20] MEDS: PREGABALIN 100 MG CAPSULE PO SCH ×2 (08:17→16:40)
[2018-08-20] MEDS: CLOTRIMAZOLE 1% 15 GM TUBE TP SCH (08:23)
[2018-08-20] MEDS: Z GUARD REMEDY 2 OZ OINT TP SCH ×2 (08:23→20:57)
[2018-08-20] MEDS: ENSURE ENLIVE CHOC 237 ML CAN PO SCH ×3 (08:23→16:44)
[2018-08-20] MEDS: APIXABAN 2.5 MG TABLET PO SCH ×2 (08:23→16:42)
[2018-08-20] MEDS: ENSURE ENLIVE 237 ML LIQUID (VANILLA) PO SCH ×3 (08:24→16:43)
[2018-08-20 08:46] LABS: ABG BASE EXCESS 5.5 mmol/L; ABG OXYGEN SATURATION 83.5 % (92.0-98.5); ABG PCO2 53.9 mmHg (35.0-45.0); ABG PH 7.384 (7.350-7.450); ABG PO2 51.1 mmHg (75.0-100.0); COHb 0.3 % (0.5-1.5); MetHb 0.4 % (0.0-1.5); O2Hb 82.9 % (94.0-97.0); SITE, ABG Right Radial; VENT MODE, BG 3L NC
[2018-08-20] MEDS: ACETYLCYSTEINE 10% SOLN 400 MG/4 ML VIAL NEB SCH ×2 (15:01→23:23)
[2018-08-20] MEDS: ALBUTEROL HALF STRENGTH 1.25 MG/3 ML VIAL.NEB NEB SCH ×3 (15:01→23:23)
[2018-08-20] MEDS: IPRATROPIUM NEB FS 0.5 MG/2.5 ML AMPUL.NEB NEB SCH ×3 (15:01→23:23)
[2018-08-20] MEDS: HYDROGEL DRESSING 90 GM TUBE TP SCH (16:40)
--- NOTE | 2018-08-20 19:46 | NUR ---
RN NOTE: RECEIVED PT ON BED ALERT AND ORIENTED X2 WITH EPISODES OF CONFUSION. DAUGHTER AT BEDSIDE. PT VERBALLY RESPONSIVE WITH NO APPARENT DISTRESS NOTED. DENIES PAIN AND DISCOMFORT AT THIS TIME. ON 5LPM NASAL CANNULA, SATURATING WELL O2 SAT 94%. SALINAS CATH INTACT AND PATENT, DRAINING WELL. IV ON LEFT HAND #20 AND RIGHT FOREARM #22 INTACT AND PATENT, FLUSHING WELL. NO SIGNS/SYMPTOMS OF INFILTRATION AT THIS TIME. KEPT CLEAN, DRY AND COMFORTABLE. CALL LIGHT PLACED WITHIN REACH. SAFETY AND FALL PRECAUTIONS OBSERVED AND MAINTAINED. WILL CONTINUE TO MONITOR PT.
--- NOTE | 2018-08-20 20:29 | NUR ---
RCVD PT ON 5L NASAL CANNULA . PT PLACED BACK ON BIPAP DUE TO DESATURATION OF SPO2 76%. PT IS ALERT AND AWAKE. BREATHING TX GIVEN PER MD'S ORDER, NO ADVERSE REACTION NOTED. WILL CONTINUE TO MONITOR THE PT.
--- NOTE | 2018-08-20 20:33 | NUR ---
RN NOTE: PT HAD AN EPISODE OF DESATURATION. O2 SAT WENT DOWN TO 76% ON 5LPM NASAL CANNULA. PT WAS PUT ON BIPAP ORDERED. O2 SAT 99% AT THIS TIME. WILL CONTINUE TO MONITOR PT.
[2018-08-20] MEDS: HYDROCODONE/APAP 5/325MG 1 EACH TABLET PO PRN (21:58)
[2018-08-21] VITALS (27 sets, daily range): BP systolic 116–156; BP diastolic 52–92
[2018-08-21] MEDS: ALBUTEROL HALF STRENGTH 1.25 MG/3 ML VIAL.NEB NEB SCH ×6 (03:12→23:31)
[2018-08-21] MEDS: IPRATROPIUM NEB FS 0.5 MG/2.5 ML AMPUL.NEB NEB SCH ×6 (03:13→23:31)
[2018-08-21] MEDS: MEROPENEM 500 MG in IV NS 0.9% 100 ML IV SCH (04:53)
--- NOTE | 2018-08-21 05:10 | NUR ---
RN NOTE: PT PLACED ON 5LPM NASAL CANNULA, SATURATING WELL. O2 SAT 96% AT THIS TIME. WILL CONTINUE TO MONITOR PT.
--- NOTE | 2018-08-21 06:37 | NUR ---
RN NOTE: NO CHANGES NOTED THROUGHOUT THE SHIFT. PT HAD EPISODES OF CONFUSION. NO APPARENT DISTRESS NOTED. DENIES PAIN AND DISCOMFORT AT THIS TIME. ON 5LPM NASAL CANNULA, NO SOB NOTED. O2 SAT 95%. SALINAS CATH INTACT AND PATENT, DRAINED 350ML OF CLEAR URINE OUTPUT. IV ON RIGHT FOREARM #22 INTACT AND PATENT, IV ATB INFUSING AT THIS TIME. CALL LIGHT PLACED WITHIN REACH. KEPT CLEAN, DRY AND COMFORTABLE. SIDE RAILS UP X3. BED ALARM ON. BED LOCKED AND IN LOWEST POSITION. WILL ENDORSE TO DAY SHIFT RN FOR CONTINUITY OF CARE.
--- NOTE | 2018-08-21 07:30 | NUR ---
SAW GRINDER AM NOTE: RECEIVED PT IN BED, ALERT AND ORIENTED X2 WITH EPISODES OF CONFUSION. DAUGHTER AT BEDSIDE. PT VERBALLY RESPONSIVE WITH NO APPARENT DISTRESS NOTED. ON 5LPM NASAL CANNULA, SATURATING WELL O2 SAT 99%. AFIB CONTROLLED HR 90 ON TELE MONITOR. DENIES PAIN AND DISCOMFORT AT THIS TIME. IV ON RIGHT FOREARM #22 INTACT AND PATENT, FLUSHES WELL, NS AT KVO. SITE CLEAR. SALINAS CATH INTACT AND PATENT, DRAINING WELL. ADEQUATE AMOUNT. WILL TURN AND REPOSITION Q 2HOURS. CALL LIGHT PLACED WITHIN REACH. SAFETY AND FALL PRECAUTIONS OBSERVED AND MAINTAINED. NEEDS ANTICIPATED. WILL CONTINUE TO MONITOR PT.
[2018-08-21] MEDS: ACETYLCYSTEINE 10% SOLN 400 MG/4 ML VIAL NEB SCH ×3 (07:37→23:31)
[2018-08-21] MEDS: PANTOPRAZOLE 40 MG TABLET.DR PO SCH (08:02)
[2018-08-21] MEDS: LEVOTHYROXINE SODIUM 88 MCG TABLET PO SCH (08:27)
[2018-08-21] MEDS: PREGABALIN 100 MG CAPSULE PO SCH ×2 (08:36→17:01)
[2018-08-21] MEDS: LACTOBACILLUS RHAMNOSUS GG 1 EACH CAP.SPRINK PO SCH ×2 (08:37→17:00)
[2018-08-21] MEDS: AMLODIPINE BESYLATE 5 MG TABLET PO SCH (08:37)
[2018-08-21] MEDS: ASCORBIC ACID 500 MG TABLET PO SCH ×2 (08:37→17:00)
[2018-08-21] MEDS: ENSURE ENLIVE CHOC 237 ML CAN PO SCH ×3 (08:38→17:15)
[2018-08-21] MEDS: DOXAZOSIN MESYLATE (1 MG) 1 MG TABLET PO SCH (08:38)
[2018-08-21] MEDS: DILTIAZEM HCL 30 MG TABLET PO SCH ×4 (08:38→21:56)
[2018-08-21] MEDS: CALCIUM CARBONATE 500 MG TAB.CHEW PO SCH (08:38)
[2018-08-21] MEDS: HYDROGEL DRESSING 90 GM TUBE TP SCH (08:40)
[2018-08-21] MEDS: ENSURE ENLIVE 237 ML LIQUID (VANILLA) PO SCH ×3 (08:40→17:00)
[2018-08-21 09:27] LABS: ABG BASE EXCESS 7.9 mmol/L; ABG OXYGEN SATURATION 90.3 % (92.0-98.5); ABG PCO2 47.1 mmHg (35.0-45.0); ABG PH 7.458 (7.350-7.450); AaDO2 205.3 mmHg; COHb 0.2 % (0.5-1.5); MetHb 0.6 % (0.0-1.5); O2Hb 89.6 % (94.0-97.0); SITE, ABG Right Radial; VENT MODE, BG Nasal Cannula
--- NOTE | 2018-08-21 09:30 | NUR ---
SHOWER MAID NOTES DUE MEDS GIVEN
[2018-08-21] MEDS: VALSARTAN 80 MG TABLET PO SCH (10:02)
[2018-08-21] MEDS: CLOTRIMAZOLE 1% 15 GM TUBE TP SCH ×3 (10:02→17:08)
[2018-08-21] MEDS: Z GUARD REMEDY 2 OZ OINT TP SCH ×2 (10:02→21:59)
[2018-08-21] MEDS: hydrALAZINE HCL 25 MG TABLET PO SCH ×2 (10:02→17:01)
--- NOTE | 2018-08-21 10:56 | NUR ---
CHOCOLATIER NOTES GIANNI RN FROM [facility] AT BEDSIDE TALKING TO HERNANDEZ DAUGHTER FOR HOSPICE EXPLANATION OF BENEFITS AND CONSENTS
--- NOTE | 2018-08-21 12:30 | NUR ---
WINDOW GLASS INSTALLER NOTES HOSPICE EVAL COMPLETED BY GIANNI VELA FROM [facility].
[2018-08-21] MEDS ORDERED: MEROPENEM 500 MG in IV NS 0.9% 100 ML IV SCH (17:00)
--- NOTE | 2018-08-21 18:55 | NUR ---
[employer] FACTORY WORKER CLOSING NOTE: PT IN BED, RESTING, ALERT AND ORIENTED X2 WITH EPISODES OF CONFUSION. PT VERBALLY RESPONSIVE WITH NO APPARENT DISTRESS NOTED. ON 5LPM NASAL CANNULA, SATURATING WELL O2 SAT 95%. AFIB CONTROLLED HR 70s TO 90s ON TELE MONITOR. DENIES PAIN AND DISCOMFORT AT THIS TIME. IV ON RIGHT FOREARM #22 INTACT AND PATENT, FLUSHES WELL, NS AT KVO. SITE CLEAR. SALINAS CATH INTACT AND PATENT, DRAINING WELL. ADEQUATE AMOUNT, 857 ML OUTPUT. TURNED AND REPOSITIONED Q 2HOURS. CALL LIGHT PLACED WITHIN REACH. SAFETY AND FALL PRECAUTIONS OBSERVED AND MAINTAINED. NEEDS MET. NO OTHER SIGNIFICANT CHANGE IN CONDITION. WILL ENDORSE TO NEXT SHIFT FOR CROW.
--- NOTE | 2018-08-21 19:37 | NUR ---
EXPERIMENTAL OUTBOARD MOTORS MECHANIC INITIAL NOTE: RECEIVED PT IN BED, ALERT AND ORIENTED X2 WITH EPISODES OF CONFUSION. PT VERBALLY RESPONSIVE WITH NO APPARENT DISTRESS NOTED. ON 6 LPM NASAL CANNULA, RT AUSCULTATED PT LUNGS NOTED BILAT' CRACKLES, SATURATING WELL O2 SAT 99%, RT TO PERFORM CP, WITH SCHEDULED MUCOMIST TO BE GIVEN. AFIB CONTROLLED HR 90' S ON TELE MONITOR. DENIES PAIN AND DISCOMFORT AT THIS TIME. IV ON RIGHT FOREARM #22 INTACT AND PATENT, FLUSHES WELL, NS AT KVO. SITE CLEAR. SALINAS CATH INTACT AND PATENT, DRAINING WELL. ADEQUATE AMOUNT. WILL TURN AND REPOSITION Q 2HOURS. CALL LIGHT PLACED WITHIN REACH. SAFETY AND FALL PRECAUTIONS OBSERVED AND MAINTAINED. NEEDS ANTICIPATED. WILL CONTINUE TO MONITOR PT.
[2018-08-22] VITALS (14 sets, daily range): BP systolic 98–145; BP diastolic 52–78
[2018-08-22] MEDS: ALBUTEROL HALF STRENGTH 1.25 MG/3 ML VIAL.NEB NEB SCH ×4 (03:21→15:50)
[2018-08-22] MEDS: IPRATROPIUM NEB FS 0.5 MG/2.5 ML AMPUL.NEB NEB SCH ×4 (03:21→15:50)
--- NOTE | 2018-08-22 06:26 | NUR ---
POLICE LIEUTENANT PATROL CLOSING NOTE: ENDORSED PT IN BED, ALERT AND ORIENTED X2 WITH EPISODES OF CONFUSION. PT VERBALLY RESPONSIVE WITH NO APPARENT DISTRESS NOTED. ON 6 LPM NASAL CANNULA, RT AUSCULTATED PT LUNGS NOTED BILAT' CRACKLES, SATURATING WELL O2 SAT 99%, RT TO PERFORM CP, WITH SCHEDULED MUCOMIST TO BE GIVEN, SUCTIONED PT CLEARED. AFIB CONTROLLED HR 90' S ON TELE MONITOR. DENIES PAIN AND DISCOMFORT AT THIS TIME. IV ON RIGHT FOREARM #22 INTACT AND PATENT, FLUSHES WELL, NS AT KVO. SITE CLEAR. SALINAS CATH INTACT AND PATENT, DRAINING WELL. ADEQUATE AMOUNT. WILL TURN AND REPOSITION Q 2HOURS. CALL LIGHT PLACED WITHIN REACH. SAFETY AND FALL PRECAUTIONS OBSERVED AND MAINTAINED. NEEDS ANTICIPATED. WILL ENDORSE PT TO AM RN, PT SCHEDULED FOR THORACENTISIS TODAY.
[2018-08-22] MEDS: ACETYLCYSTEINE 10% SOLN 400 MG/4 ML VIAL NEB SCH ×2 (07:30→15:50)
[2018-08-22] MEDS: LEVOTHYROXINE SODIUM 88 MCG TABLET PO SCH (08:32)
[2018-08-22] MEDS: PANTOPRAZOLE 40 MG TABLET.DR PO SCH (08:33)
[2018-08-22] MEDS: ENSURE ENLIVE CHOC 237 ML CAN PO SCH ×3 (08:35→17:12)
[2018-08-22] MEDS: HYDROCODONE/APAP 5/325MG 1 EACH TABLET PO PRN ×4 (08:35→14:13)
[2018-08-22] MEDS: DILTIAZEM HCL 30 MG TABLET PO SCH ×3 (08:54→17:11)
[2018-08-22] MEDS: AMLODIPINE BESYLATE 5 MG TABLET PO SCH (08:55)
[2018-08-22] MEDS: DOXAZOSIN MESYLATE (1 MG) 1 MG TABLET PO SCH (08:55)
[2018-08-22] MEDS: LACTOBACILLUS RHAMNOSUS GG 1 EACH CAP.SPRINK PO SCH ×2 (08:55→17:11)
[2018-08-22] MEDS: ASCORBIC ACID 500 MG TABLET PO SCH ×2 (08:55→17:12)
[2018-08-22] MEDS: PREGABALIN 100 MG CAPSULE PO SCH ×2 (08:56→17:12)
[2018-08-22] MEDS: VALSARTAN 80 MG TABLET PO SCH (08:56)
[2018-08-22] MEDS: hydrALAZINE HCL 25 MG TABLET PO SCH ×2 (08:57→17:13)
[2018-08-22] MEDS: ENSURE ENLIVE 237 ML LIQUID (VANILLA) PO SCH ×3 (09:00→17:12)
[2018-08-22] MEDS: CLOTRIMAZOLE 1% 15 GM TUBE TP SCH ×2 (09:00→17:12)
[2018-08-22] MEDS: Z GUARD REMEDY 2 OZ OINT TP SCH (09:00)
[2018-08-22] MEDS: HYDROGEL DRESSING 90 GM TUBE TP SCH (09:00)
[2018-08-22] MEDS: CALCIUM CARBONATE 500 MG TAB.CHEW PO SCH (09:00)
[2018-08-22] MEDS ORDERED: MORPHINE SULFATE INJ 2 MG/ML DISP.SYRIN IV PRN (12:00)
[2018-08-22] MEDS ORDERED: IPRA0.2S9 NEB (12:46)
[2018-08-22] MEDS ORDERED: VALS80TA2 PO (12:46)
[2018-08-22] MEDS ORDERED: PREG100C PO (12:46)
[2018-08-22] MEDS ORDERED: HYDR-4076 PO (12:46)
[2018-08-22] MEDS ORDERED: LACT-54 PO (12:46)
[2018-08-22] MEDS ORDERED: HYDR-3972 PO (12:46)
[2018-08-22] MEDS ORDERED: ALLA266C2 TP (12:46)
[2018-08-22] MEDS ORDERED: CLOT15CR35 TP (12:46)
[2018-08-22] MEDS ORDERED: ACET1OOV6 NEB (12:46)
[2018-08-22] MEDS ORDERED: POLY17PO4 PO (12:46)
[2018-08-22] MEDS ORDERED: DOXA1TAB17 PO (12:46)
[2018-08-22] MEDS ORDERED: DILT30TA14 PO (12:46)
[2018-08-22] MEDS ORDERED: HYDR-4384 PO (12:46)
[2018-08-22] MEDS ORDERED: LACT1CAP72 PO (12:46)
--- NOTE | 2018-08-22 13:22 | NUR ---
PT SACRUM WOUND CARE DONE ORDERED,PT TURNED AND REPOSITIONNED Q 2HRS PER HOUSE PROTOCOLE.NO OTHER S/S OF ALTERETED SKIN INTEGRITY NOTED Addendum: 08/22/18 at 1325 by SUNITHA MELÉNDEZ RN Amended: Links added.
[2018-08-22] MEDS: MORPHINE SULFATE INJ 2 MG/ML DISP.SYRIN IV PRN ×2 (13:53→17:23)
--- NOTE | 2018-08-22 15:40 | NUR ---
PT HAS THORACENTESIS DONE AND GLADYS BAEZA TOOK 1000 MLS OUT FROM THE LEFT LUNG,SPECIMEN SENT TO LAB FOR CYTOLOGY ORDERED. Addendum: 08/22/18 at 1542 by SUNITHA MELÉNDEZ RN Amended: Links added.
--- NOTE | 2018-08-22 18:39 | NUR ---
pT DISCHARGE TO [facility] WITH [facility] ARTEAGA PER HOSPICE NURSE REQUEST. Addendum: 08/22/18 at 1841 by SUNITHA MELÉNDEZ RN Amended: Links added.
== END 2018-08-22 18:40 | disposition hospice, inpatient (51) | DRG 853 ==
LOC: TELE 02:44 → MED 08-15 09:21 → ICU 08-19 19:40
PROVIDERS: ADMIT Nurse Practitioner Acute Care
PROC: 0JB70ZZ Excision of Back Subcutaneous Tissue and Fascia, Open Approach (ICD-10-PCS; principal; 2018-08-14)
PROC: 5A09457 Assistance with Respiratory Ventilation, 24-96 Consecutive Hours, Continuous Positive Airway Pressure (ICD-10-PCS; 2018-08-19)
PROC: 0JB70ZZ Excision of Back Subcutaneous Tissue and Fascia, Open Approach (ICD-10-PCS; 2018-08-20)
PROC: 0W9B4ZZ Drainage of Left Pleural Cavity, Percutaneous Endoscopic Approach (ICD-10-PCS; 2018-08-22)
DX: A41.9 Sepsis, unspecified organism (principal); L89.153 Pressure ulcer of sacral region, stage 3; J18.9 Pneumonia, unspecified organism; E43 Unspecified severe protein-calorie malnutrition; J96.01 Acute respiratory failure with hypoxia; J96.02 Acute respiratory failure with hypercapnia; N39.0 Urinary tract infection, site not specified; E87.2 Acidosis; I50.32 Chronic diastolic (congestive) heart failure; J90 Pleural effusion, not elsewhere classified; J98.11 Atelectasis; G93.40 Encephalopathy, unspecified; Z66 Do not resuscitate; Z51.5 Encounter for palliative care; B96.89 Other specified bacterial agents as the cause of diseases classified elsewhere; I48.91 Unspecified atrial fibrillation; E03.9 Hypothyroidism, unspecified; D63.8 Anemia in other chronic diseases classified elsewhere; E83.42 Hypomagnesemia; F03.90 Unspecified dementia, unspecified severity, without behavioral disturbance, psychotic disturbance, mood disturbance, and anxiety; M79.7 Fibromyalgia; Z96.611 Presence of right artificial shoulder joint; Z90.710 Acquired absence of both cervix and uterus; Z87.891 Personal history of nicotine dependence; Z87.440 Personal history of urinary (tract) infections; Z86.73 Personal history of transient ischemic attack (TIA), and cerebral infarction without residual deficits; Z79.01 Long term (current) use of anticoagulants; I11.0 Hypertensive heart disease with heart failure; K22.0 Achalasia of cardia; K80.20 Calculus of gallbladder without cholecystitis without obstruction; L30.4 Erythema intertrigo; L84 Corns and callosities; I27.20 Pulmonary hypertension, unspecified; K21.9 Gastro-esophageal reflux disease without esophagitis; M19.90 Unspecified osteoarthritis, unspecified site; Z79.899 Other long term (current) drug therapy; G62.9 Polyneuropathy, unspecified; I70.235 Atherosclerosis of native arteries of right leg with ulceration of other part of foot; L98.9 Disorder of the skin and subcutaneous tissue, unspecified; R13.10 Dysphagia, unspecified; Z88.0 Allergy status to penicillin; Z88.2 Allergy status to sulfonamides; Z88.8 Allergy status to other drugs, medicaments and biological substances; I70.0 Atherosclerosis of aorta; T17.990A Other foreign object in respiratory tract, part unspecified in causing asphyxiation, initial encounter; X58.XXXA Exposure to other specified factors, initial encounter; Y92.89 Other specified places as the place of occurrence of the external cause
CPT/HCPCS: 36415; 36600; 71045-TC; 76942-TC; 80048-TC; 80053-TC; 80061-TC; 82803-TC; 83605-TC; 83735-TC; 84100-TC; 84443-TC; 85025-TC; 85610-TC; 87040-TC; 87070-TC; 87075-TC; 87081-TC; 87102-TC; 87116; 87206; 89051-TC; 92526; 92611-TC; 94660; 94799-TC; 97110-TC; 97116-TC; 97530-TC; A4216; A6248; A6253; A6402; A6403; G0378; J0456; J0696; J1940; J2185; J2270; J3475; J7030; J7050; J7060; J8597